=== PATIENT | female | born 1950 | race Caucasian/White ===

== ENCOUNTER 2017-07-18 14:47 | Emergency (ER) | payer MEDICARE, OTHER, SELFPAY ==
[2017-07-18 15:40] VITALS: BP 105/86; PULSE 85; RESP 20; TEMP 37.1; O2SAT 97; BMI 30.4
--- NOTE | 2017-07-18 15:56 | HMH.EDUTC ---
[facility] [place] Clinical Impression: Strep throat Disposition: Home, Self-Care Condition on Discharge: Good Instructions: Strep Throat, DI for Strep Throat Additional Instructions: * Monitor Temp. Tylenol and/or Ibuprofen as needed. ER if fever is no less than 101 despite alternating Tylenol and Ibuprofen * Encourage fluids, water, Gatorade, powerade, pedialyte if /toddler/or child * Warm salt water gargles for throat irritation *Warm fluids *Sore throat lozenges *Sleep elevated *humidifier or vaporizer Lots of rest Increase fluids, water, Gatorade, powerade Follow up IMMEDIATELY for new or worsening of symptoms OR no noticeable improvement over the next 48-72 hours. 911 immediately for any life threatening symptoms such as chest pain or difficulty breathing Referrals: Cheikh Yeboah MD [Primary Care Provider] - Time of Disposition: 16:18 Medical Decision Making - Medical Records Medical records reviewed: Yes: I reviewed the patient's medical records. Vital Signs: 07/18/17 15:40 Temperature 98.8 F Temperature Source Temporal Artery Scan Pulse Rate [Right] 85 Respiratory Rate 20 Blood Pressure [Right Arm] 105/86 Blood Pressure Mean [Right Arm] 92 Blood Pressure Source [Right Arm] Automatic Cuff Blood Pressure Position [Right Arm] Sitting 02 Sat by Pulse Oximetry 97 Oxygen Delivery Method Room Air - Lab Data Lab Results 07/18/17 15:40: Influenza Type A Ag Negative, Influenza Type B Ag Negative, Strep Scn Rapid Clinic Positive A Orders (Tests/Meds): ED MEDICATIONS Discontinued Medications Generic Name Dose Route Start Last Admin Trade Name Freq PRN Reason Stop Dose Admin Penicillin G Benzathine 1,200,000 unit 07/18/17 16:07 07/18/17 16:18 Bicillin La 1,200,000 Units/2ml Syringe IM 07/18/17 16:08 1,200,000 unit ONCE ONE Administration Protocol - Bon Inquiry Pt receiving controlled substance: No Bon was queried for this patient: No [facility] [place] - General Stated complaint: cough sore throat lft ear pain Mode of Arrival: Ambulatory Source of Information: Patient Limitations: No Limitations Description of Symptoms (Recalled from Triage Doc. by RN): COUGH, CONGESTION HEENT Symptoms (Recalled from RN notes): Yes Resp Symptoms (Recalled from RN notes): No Skin Symptoms (Recalled from RN notes): No MS Symptoms (Recalled from RN notes): No Functional Status (Recalled from RN notes): N - History of Present Illness Provider Complaint: Patient state that she has been taking care of her sick grandchildren States that one grandchild had the flu and one had strep throat States that she is sure she has one of them. States that she has had fever, body aches chills and sore throat State that it hurts to swallow and her throat raza - Related Data Allergies Allergy/AdvReac Type Severity Reaction Status Date / Time azithromycin Allergy Intermediate NA-NAUSEA/V Verified 07/18/17 15:44 OMITING latex Allergy Intermediate I-HIVES Verified 07/18/17 16:09 adhesive tape Allergy Unknown I-HIVES Verified 07/18/17 16:09 promethazine Allergy Unknown LEG PAIN Verified 07/18/17 15:44 - Worker's Comp Is this a Worker's Comp case?: No [facility] History I have reviewed the patient's past medical history: Yes - *Social History Alcohol Intake: never - Psychiatric History Expresses thoughts of harming self/others: None Suicide Plan Description: No Plan ROS Obtained: Yes All systems reviewed & no additional complaints Physical Exam - General General appearance: alert, in no apparent distress - Expanded ENT Exam Throat exam: Present: tonsillar erythema, tonsillar exudate - Respiratory Respiratory exam: Present: normal lung sounds bilaterally. Absent: respiratory distress - Cardiovascular Cardiovascular exam: Present: regular rate, normal rhythm. Absent: JVD - Neurological Exam Neurological exam: Present: alert, oriented X3
--- NOTE | 2017-07-18 16:06 | ED_ITS ---
[facility] [place] Disposition Clinical Impression: Strep throat Disposition: Home, Self-Care Condition on Discharge: Good Instructions: Strep Throat, DI for Strep Throat Additional Instructions: * Monitor Temp. Tylenol and/or Ibuprofen as needed. ER if fever is no less than 101 despite alternating Tylenol and Ibuprofen * Encourage fluids, water, Gatorade, powerade, pedialyte if /toddler/or child * Warm salt water gargles for throat irritation *Warm fluids *Sore throat lozenges *Sleep elevated *humidifier or vaporizer Lots of rest Increase fluids, water, Gatorade, powerade Follow up IMMEDIATELY for new or worsening of symptoms OR no noticeable improvement over the next 48-72 hours. 911 immediately for any life threatening symptoms such as chest pain or difficulty breathing Referrals: Cheikh Yeboah MD [Primary Care Provider] - Time of Disposition: 16:18 Medical Decision Making - Medical Records Medical records reviewed: Yes: I reviewed the patient's medical records. Vital Signs: 07/18/17 15:40 Temperature 98.8 F Temperature Source Temporal Artery Scan Pulse Rate [Right] 85 Respiratory Rate 20 Blood Pressure [Right Arm] 105/86 Blood Pressure Mean [Right Arm] 92 Blood Pressure Source [Right Arm] Automatic Cuff Blood Pressure Position [Right Arm] Sitting 02 Sat by Pulse Oximetry 97 Oxygen Delivery Method Room Air - Lab Data Lab Results 07/18/17 15:40: Influenza Type A Ag Negative, Influenza Type B Ag Negative, Strep Scn Rapid Clinic Positive A Orders (Tests/Meds): ED MEDICATIONS Discontinued Medications Generic Name Dose Route Start Last Admin Trade Name Freq PRN Reason Stop Dose Admin Penicillin G Benzathine 1,200,000 unit 07/18/17 16:07 07/18/17 16:18 Bicillin La 1,200,000 Units/2ml Syringe IM 07/18/17 16:08 1,200,000 unit ONCE ONE Administration Protocol - Bon Inquiry Pt receiving controlled substance: No Bon was queried for this patient: No [facility] [place] HPI - General Stated complaint: cough sore throat lft ear pain Mode of Arrival: Ambulatory Source of Information: Patient Limitations: No Limitations Description of Symptoms (Recalled from Triage Doc. by RN): COUGH, CONGESTION HEENT Symptoms (Recalled from RN notes): Yes Resp Symptoms (Recalled from RN notes): No Skin Symptoms (Recalled from RN notes): No MS Symptoms (Recalled from RN notes): No Functional Status (Recalled from RN notes): N - History of Present Illness Provider Complaint: Patient state that she has been taking care of her sick grandchildren States that one grandchild had the flu and one had strep throat States that she is sure she has one of them. States that she has had fever, body aches chills and sore throat State that it hurts to swallow and her throat raza - Related Data Allergies Allergy/AdvReac Type Severity Reaction Status Date / Time azithromycin Allergy Intermediate NA-NAUSEA/V Verified 07/18/17 15:44 OMITING latex Allergy Intermediate I-HIVES Verified 07/18/17 16:09 adhesive tape Allergy Unknown I-HIVES Verified 07/18/17 16:09 promethazine Allergy Unknown LEG PAIN Verified 07/18/17 15:44 - Worker's Comp Is this a Worker's Comp case?: No [facility] History I have reviewed the patient's past medical history: Yes - *So
[2017-07-18 16:17] LABS: UTC Influenza A Antigen Negative (Negative); UTC Influenza B Antigen Negative (Negative); UTC Strep Screen (Rapid) Positive (Negative)
[2017-07-18 16:21] VITALS: BP 108/82; PULSE 85; RESP 20; TEMP 36.9
== END 2017-07-18 16:34 | disposition home or self-care (01) ==
PROVIDERS: Emergency Provider Nurse Practitioner; Family Provider Internal Medicine Adolescent Medicine; PCP Internal Medicine Adolescent Medicine
DX: J02.0 Streptococcal pharyngitis (principal)
CPT/HCPCS: 87804; 87880; 96372; 99201; J0561

== ENCOUNTER → 2017-08-17 08:23 | Outpatient (CLI) | payer MEDICARE, OTHER, SELFPAY ==
[2017-08-17 09:00] LABS: Basophils % 0.4 % (0.1-2.0); Eosinophils # 0.2 K/mm3 (0.0-0.4); Eosinophils % 3.3 % (0.1-12.0); Hematocrit 38.3 % (37.0-47.0); Hemoglobin 12.8 g/dL (12.2-16.2); Lymphocytes % 20.9 K/mm3 (10-50); Mean Corpuscular HGB Conc 33.4 g/dL (31.8-35.4); Mean Corpuscular Hemoglobin 30.4 pg (27.0-31.2); Mean Corpuscular Volume 91.2 fl (81-99); Monocytes # 0.4 K/mm3 (0.1-1.0); Neutrophils % 67.4 % (37.0-80.0); Platelet Count 197 K/mm3 (142-424); Red Cell Distribution Width 14.4 % (11.5-17.5); White Blood Count 4.5 K/mm3 (4.8-10.8)
[2017-08-17 09:04] LABS: Alanine Aminotransferase 27 U/L (12-78); Albumin Level 3.6 gm/dL (3.4-5.0); Albumin/Globulin Ratio 1.1 (1.1-1.8); Alkaline Phosphatase 128 U/L (46-116); Anion Gap 12.2 mEq/L (5-15); Aspartate Amino Transferase 17 U/L (15-37); Bilirubin,Total 1.5 mg/dL (0.2-1.0); Blood Urea Nitrogen 11 mg/dL (7-18); Calcium 8.5 mg/dL (8.5-10.1); Carbon Dioxide 28 mmol/L (21.0-32.0); Chloride 105 mmol/L (98-107); Chol/HDL Ratio 3.8 (1-3.5); Cholesterol 132 mg/dL (140-200); Creatinine,Serum 0.84 mg/dL (0.55-1.02); Estimated Glomerular Filt Rate 68 ml/min (>60); GFR (African American) 82 ML/MIN (>60); Globulin 3.3 gm/dl (1.3-3.2); Glucose 163 mg/dL (74-106); HDL Cholesterol 35 mg/dL (29-89); LDL Cholesterol 64 mg/dL (0-130); Potassium 3.2 mmoL/L (3.5-5.1); Sodium 142 mmol/L (136-145); Total Protein,Serum 6.9 gm/dL (6.4-8.2); Triglycerides 165 mg/dL (30-200); VLDL Cholesterol 33 mg/dL (0-40)
[2017-08-17 09:42] LABS: Hemoglobin A1C 6.6 % (0.0-7.0)
== END ==
PROVIDERS: Visit Provider Internal Medicine Adolescent Medicine
DX: E78.5 Hyperlipidemia, unspecified (principal); E11.9 Type 2 diabetes mellitus without complications; I10 Essential (primary) hypertension; R53.83 Other fatigue; E03.9 Hypothyroidism, unspecified
CPT/HCPCS: 36415; 80053; 80061; 83036; 84443; 85025

== ENCOUNTER 2017-09-21 14:21 | Observation (INO) ==
[2017-09-21 14:43] LABS: Basophils % 0.3 % (0.1-2.0); Eosinophils # 0.1 K/mm3 (0.0-0.4); Hematocrit 43.5 % (37.0-47.0); Hemoglobin 14.4 g/dL (12.2-16.2); Lymphocytes # 1.6 K/mm3 (0.7-4.5); Lymphocytes % 24.3 K/mm3 (10-50); Mean Corpuscular HGB Conc 33.1 g/dL (31.8-35.4); Mean Corpuscular Volume 90.4 fl (81-99); Mean Platelet Volume 7.2 fl (7.4-10.4); Monocytes # 0.3 K/mm3 (0.1-1.0); Monocytes % 4.7 % (1.7-9.3); Neutrophils # 4.4 K/mm3 (1.8-7.8); Neutrophils % 68.7 % (37.0-80.0); Platelet Count 210 K/mm3 (142-424); Red Blood Count 4.81 M/mm3 (4.20-5.40); Red Cell Distribution Width 14.3 % (11.5-17.5); White Blood Count 6.4 K/mm3 (4.8-10.8)
--- NOTE | 2017-09-21 14:51 | Emergency Department Note ---
ED Disposition Clinical Impression: Hypotension, Hyperlipidemia, Hypothyroidism, Chest pain Disposition: Still a Patient Condition on Discharge: Fair Referrals: Cheikh Yeboah MD [Primary Care Provider] - - Critical Care Critical Care Time: No Attestation: On 09/21/17, the high probability of a clinically significant, sudden or life threatening deterioration of the following system(s) required my full and direct attention, intervention and personal management. The time I documented below is in addition to time spent performing reported procedures but includes the following listed in this critical care notation. Medical Decision Making - Medical Records Medical records reviewed: Yes: I reviewed the patient's medical records. - Bon Inquiry Pt receiving controlled substance: No Bon was queried for this patient: No Vital Signs: 09/21/17 14:22 Temperature 98.4 F Temperature Source Oral Pulse Rate [Left Radial] 93 H Respiratory Rate 20 Blood Pressure [Right Arm] 129/58 Blood Pressure Mean [Right Arm] 81 Blood Pressure Source [Right Arm] Automatic Cuff Blood Pressure Position [Right Arm] Sitting 02 Sat by Pulse Oximetry 95 Oxygen Delivery Method Room Air - Lab Data Lab Results 09/21/17 14:30: WBC 6.4, RBC 4.81, Hgb 14.4, Hct 43.5, MCV 90.4, MCH 30.0, MCHC 33.1, RDW 14.3, Plt Count 210, MPV 7.2 L, Neut % (Auto) 68.7, Lymph % (Auto) 24.3, [place] % (Auto) 4.7, Eos % (Auto) 2.0, Baso % (Auto) 0.3, Neut # (Auto) 4.4 , Lymph # (Auto) 1.6, [place] # (Auto) 0.3, Eos # (Auto) 0.1, Baso # (Auto) 0.0 09/21/17 14:30: Sodium 143, Potassium 3.3 L, Chloride 104, Carbon Dioxide 30, Anion Gap 12.3, BUN 14, Creatinine 0.90, Estimated Creat Clear 67, Estimated GFR 62, Est GFR ( Amer) 76, Glucose 113 H, Calcium 9.5, Total Bilirubin 2.3 H, AST 66 H, ALT 47, Alkaline Phosphatase 205 H, Total Creatine Kinase 83, CK-MB (CK-2) 0.7, CK-MB (CK-2) Rel Index 0.8, Troponin I < 0.02, Total Protein 7.8, Albumin 4.2, Globulin 3.6 H, Albumin/Globulin Ratio 1.2 09/21/17 14:30: D-Dimer < 100 09/21/17 14:30: B-Natriuretic Peptide 6 Result diagrams: 09/21/17 14:30 09/21/17 14:30 - ECG Data Tracing #1 Normal sinus rhythm 96/min ST segment depression 1 mm in the inferior leads, stable since January 2015 EKG ECG initial impression date: 09/21/17 ECG initial impression time: 14:52 Medical Decision Narrative: I discussed Ms. Cook's EKG lab findings and clinical presentation with Jinny Yeboah's nurse practitioner. Will admit rule out NM protocol and obtain echocardiogram. Chest Pain HPI - General Chief Complaint: Chest Pain Stated Complaint: chest pain Time Seen by Provider: 09/21/17 14:25 Mode of Arrival: Family Vehicle Limitations: No Limitations Description of Symptoms (Recalled from ER Triage Doc. by RN): PT C/O MIDSTERNAL CHEST PAIN THAT IS RADIATING TO HER RIGHT CHEST AND TO HER BACK. PT STATES THE PAIN STARTED 1300. - History of Present Illness HPI narrative: 67 years old white female hypertension hyperlipidemia and hypothyroidism. one hour ago, she was at home when she experiences sharp retrosternal chest pain rated 10/10 she had a shortness of breath no palpitations. She decided to come to the ED and it was worse with throat bumps. MD complaint: chest pain Onset (ago): hour(s) (1 hour.) Duration: constant Activity at onset: during rest Pain location: substernal Severity: severe Severity scale (1-10): 10 Quality: sharp Pain radiation: none Relieving factors: nothing Exacerbating factors: movement, other (Road bumps.) Treatments prior to or on arrival for Cardiac Chest Pain: none - Related Data Home Medications Medication Instructions Recorded Confirmed Atorvastatin Calcium [Atorvastatin 40 mg PO HS 09/21/17 09/21/17 40mg Tab] Cetirizine HCl [Cetirizine HCl] 10 mg PO DAILY 09/21/17 09/21/17 Duloxetine HCl [Duloxetine HCl] 60 mg PO DAILY 09/21/17 09/21/17 Furosemide [Furosemide 20mg Tab] 20 mg PO BID 09/21/17 09/21/17 Levothyroxine Sodium 125 mcg PO DAILY 09/21/17 09/21/17 [Levothyroxine 125mcg (0.125mg) Tab] Lisinopril [Lisinopril 5mg Tablet] 5 mg PO DAILY 09/21/17 09/21/17 Pantoprazole Sodium [Protonix 40mg 40 mg PO BID 09/21/17 09/21/17 tablet] Potassium Chloride [K-Tab ER 10 10 meq PO BID 09/21/17 09/21/17 mEq] buPROPion HCl [Bupropion Xl] 150 mg PO DAILY 09/21/17 09/21/17 Allergies Allergy/AdvReac Type Severity Reaction Status Date / Time azithromycin Allergy Intermediate NA-NAUSEA/V Verified 09/21/17 14:30 OMITING latex Allergy Intermediate I-HIVES Verified 09/21/17 14:30 adhesive tape Allergy Unknown I-HIVES Verified 09/21/17 14:30 promethazine Allergy Unknown LEG PAIN Verified 09/21/17 14:30 [facility] History I have reviewed the patient's past medical history: Yes Medical History: Reports:: Cancer (BRAIN) Denies:: Diabetes Mellitus Type 1, Diabetes Mellitus Type 2, MRSA Amputation: No Fractures: No - Social History Smoking Status: Never smoker Alcohol Intake: never - Psychiatric History Expresses thoughts of harming self/others: None Suicide Plan Description: No Plan ROS Obtained: Yes All systems reviewed & no additional complaints Physical Exam - General General appearance: alert, in no apparent distress - Head Head exam: atraumatic, normocephalic, normal inspection - Eye Eye exam: Present: normal appearance, PERRL, EOMI - ENT ENT exam: Present: normal exam, normal oropharynx, mucous membranes moist, TM's normal bilaterally, normal external ear exam - Neck Neck exam: Present: normal inspection, full ROM, trachea midline. Absent: meningismus, lymphadenopathy - Chest Chest inspection: Present: normal inspection, symmetric chest wall rise, tenderness, other (Reproducible left parasternal tenderness. ) - Respiratory Respiratory exam: Present: normal lung sounds bilaterally. Absent: respiratory distress - Cardiovascular Cardiovascular exam: Present: regular rate, normal rhythm. Absent: JVD - Abdominal Exam Abdominal exam: Present: soft, normal bowel sounds. Absent: distention, tenderness, guarding, rebound, rigidity, mass - Back Exam Back exam: Present: normal inspection. Absent: tenderness - Neurological Exam Neurological exam: Present: alert, oriented X3, CN II-XII intact, normal gait, motor sensory deficit, reflexes normal - Psychiatric Psychiatric exam: Present: normal affect, normal mood - Skin Skin exam: Present: warm, dry, intact, normal color - Lymphatic Lymphatic Findings: no adenopathy
[2017-09-21 15:06] LABS: Alanine Aminotransferase 47 U/L (12-78); Albumin Level 4.2 gm/dL (3.4-5.0); Albumin/Globulin Ratio 1.2 (1.1-1.8); Alkaline Phosphatase 205 U/L (46-116); Anion Gap 12.3 mEq/L (5-15); Aspartate Amino Transferase 66 U/L (15-37); Bilirubin,Total 2.3 mg/dL (0.2-1.0); Blood Urea Nitrogen 14 mg/dL (7-18); Calcium 9.5 mg/dL (8.5-10.1); Carbon Dioxide 30 mmol/L (21.0-32.0); Chloride 104 mmol/L (98-107); Creatine Kinase 83 U/L (26-192); Globulin 3.6 gm/dl (1.3-3.2); Glucose 113 mg/dL (74-106); Potassium 3.3 mmoL/L (3.5-5.1); Sodium 143 mmol/L (136-145); Total Protein,Serum 7.8 gm/dL (6.4-8.2)
--- NOTE | 2017-09-21 16:53 | History & Physical Report ---
*Admission Date: 09/21/17 *Chief complaint: chest pain *History of present illness: 67 year old female presented to the ED with acute onset of chest pain that began while she was at a earlier today. Patient reports pain was midsternal and radiated around the right side of her chest. She had some associated shortness of breath and felt a little nauseated. She denies any exertional correlation. She reports other similar episodes, none of which occurred with exertion. In the ED, EKG showed T wave inversion and nonspecific ST changes, neither of which are new. Cardiac enzymes and D Dimer were normal. Patient had a cardiolite GXT and Echo in 2011 that were normal, no additional cardiac testing since that time. CMP showed her total bili at 2.3, which is up from her baseline of 1.5. AST 66. She was admitted for serial enzymes and further evaluation. [facility] History I have reviewed the patient's past medical history: Yes Medical History: Reports:: Cancer (BRAIN) Denies:: Diabetes Mellitus Type 1, Diabetes Mellitus Type 2, MRSA Amputation: No Fractures: No - *Social History Smoking Status: Never smoker Alcohol Intake: never - Psychiatric History Expresses thoughts of harming self/others: None Suicide Plan Description: No Plan Review of Systems - Review of Systems Review of systems:: pertinent systems reviewed and negative unless documented below - *Cardiovascular Reports chest pain, Reports shortness of breath - *Gastrointestinal Reports nausea Meds Home Medications Medication Instructions Recorded Confirmed Type Atorvastatin Calcium [Atorvastatin 40 mg PO HS 09/21/17 09/21/17 History 40mg Tab] Cetirizine HCl [Cetirizine HCl] 10 mg PO DAILY 09/21/17 09/21/17 History Duloxetine HCl [Duloxetine HCl] 60 mg PO DAILY 09/21/17 09/21/17 History Furosemide [Furosemide 20mg Tab] 20 mg PO BID 09/21/17 09/21/17 History Levothyroxine Sodium 125 mcg PO DAILY 09/21/17 09/21/17 History [Levothyroxine 125mcg (0.125mg) Tab] Lisinopril [Lisinopril 5mg Tablet] 5 mg PO DAILY 09/21/17 09/21/17 History Pantoprazole Sodium [Protonix 40mg 40 mg PO BID 09/21/17 09/21/17 History tablet] Potassium Chloride [K-Tab ER 10 10 meq PO BID 09/21/17 09/21/17 History mEq] buPROPion HCl [Bupropion Xl] 150 mg PO DAILY 09/21/17 09/21/17 History Allergies Allergy/AdvReac Type Severity Reaction Status Date / Time azithromycin Allergy Intermediate NA-NAUSEA/V Verified 09/21/17 14:30 OMITING latex Allergy Intermediate I-HIVES Verified 09/21/17 14:30 adhesive tape Allergy Unknown I-HIVES Verified 09/21/17 14:30 promethazine Allergy Unknown LEG PAIN Verified 09/21/17 14:30 Exam Vital signs and Labs for Last 24 Hours: Temp Pulse Resp BP Pulse Ox 98.4 F 93 H 20 129/58 95 09/21/17 14:22 09/21/17 14:22 09/21/17 14:22 09/21/17 14:22 09/21/17 14:22 Narrative: Alert and oriented x3. Rate and rhythm regular, no murmur. No carotid bruit. No JVD. No LE edema. Lung sounds clear and equal throughout. Abdomen soft and nontender. Skin pink, warm and dry. No neuro deficits Assessment and Plan (1) Chest pain Current visit: Yes Status: Acute Category: Medical Code(s): R07.9 - Chest pain, unspecified - Assessment and plan all Dx Assessment and Plan for all problems:: Serial enzymes. Will monitor telemetry and obtain Echo.
[2017-09-22 05:02] LABS: Anion Gap 9.4 mEq/L (5-15); Chol/HDL Ratio 2.6 (1-3.5); Potassium 3.4 mmoL/L (3.5-5.1)
[2017-09-22 05:11] LABS: Basophils % 0.3 % (0.1-2.0); Eosinophils # 0.1 K/mm3 (0.0-0.4); Eosinophils % 3.7 % (0.1-12.0); Hematocrit 38.9 % (37.0-47.0); Lymphocytes # 0.8 K/mm3 (0.7-4.5); Lymphocytes % 21.9 K/mm3 (10-50); Mean Corpuscular HGB Conc 32.6 g/dL (31.8-35.4); Mean Corpuscular Hemoglobin 29.7 pg (27.0-31.2); Mean Platelet Volume 7.2 fl (7.4-10.4); Monocytes # 0.3 K/mm3 (0.1-1.0); Monocytes % 7.4 % (1.7-9.3); Neutrophils # 2.5 K/mm3 (1.8-7.8); Neutrophils % 66.7 % (37.0-80.0); Platelet Count 177 K/mm3 (142-424); Red Blood Count 4.28 M/mm3 (4.20-5.40); Red Cell Distribution Width 14.2 % (11.5-17.5); White Blood Count 3.7 K/mm3 (4.8-10.8)
[2017-09-22 05:18] LABS: Hemoglobin 12.8 g/dL (12.2-16.2)
--- NOTE | 2017-09-22 07:34 | Pharmacy Consult Notes ---
[facility] Pharmacy VTE Monitoring - Patient Demographics Admission date: 09/21/17 Report Date: 09/22/17 Time: 07:34 Allergies/Adverse Reactions: Patient Allergies azithromycin Allergy (Intermediate, Verified 09/21/17 14:30) NA-NAUSEA/VOMITING latex Allergy (Intermediate, Verified 09/21/17 14:30) I-HIVES adhesive tape Allergy (Unknown, Verified 09/21/17 14:30) I-HIVES promethazine Allergy (Unknown, Verified 09/21/17 14:30) LEG PAIN Height: 1.57 m Weight: 78.018 kg Patient Problems: Current Active Problems Hypotension (Acute) Hyperlipidemia (Acute) Hypothyroidism (Acute) Chest pain (Acute) - VTE Risk Labs: VTE Related Lab Results Hgb 12.8 g/dL (12.2-16.2) D 09/22/17 04:15 Hct 38.9 % (37.0-47.0) 09/22/17 04:15 Plt Count 177 K/mm3 (142-424) 09/22/17 04:15 BUN 12 mg/dL (7-18) 09/22/17 04:15 Creatinine 0.81 mg/dL (0.55-1.02) 09/22/17 04:15 Estimated Creat Clear 67 mL/min (0-300) 09/22/17 04:15 Was VTE Risk Assessment Performed: Yes VTE Score: 5 VTE Risk Level: Low Risk Clinical Trial Participant: No - Prophylaxis VTE Prophylaxis Ordered?: Yes Types of VTE Prophylaxis: TEDS Knee High
--- NOTE | 2017-09-22 07:54 | Discharge Summary ---
General - General Admission date: 09/21/17 Discharge date: 09/22/17 HPI HPI: 67 year old female presented to the ED with acute onset of chest pain that began while she was at a earlier today. Patient reports pain was midsternal and radiated around the right side of her chest. She had some associated shortness of breath and felt a little nauseated. She denies any exertional correlation. She reports other similar episodes, none of which occurred with exertion. In the ED, EKG showed T wave inversion and nonspecific ST changes, neither of which are new. Cardiac enzymes and D Dimer were normal. Patient had a cardiolite GXT and Echo in 2011 that were normal, no additional cardiac testing since that time. CMP showed her total bili at 2.3, which is up from her baseline of 1.5. AST 66. She was admitted for serial enzymes and further evaluation. Hospital Course Hospital Course: Patient was admitted, ruled out for myocardial infarction, had one episode of sharp chest pain while she was lying flat in bed. Otherwise feels good this morning. Exam was normal. Enzymes were normal. Plan will be to discharge home today. Stress testing as an outpatient, nitroglycerin aspirin are prescribed, she was instructed clearly on nitro use and need to come back to the hospital if she had no response to nitro pill with pain. She will follow-up with me after the stress test. Objective Vital signs: Temp Pulse Resp BP Pulse Ox 98.0 F 78 16 137/77 94 L 09/22/17 07:46 09/22/17 07:46 09/22/17 07:46 09/22/17 07:46 09/22/17 07:46 Narrative: Patient is pleasant, talkative, alert, oriented 3. Heart rate regular, no murmurs, lungs clear, no edema, abdomen soft, no JVD. Results Labs on day of discharge: Labs from last 24 hours 09/22/17 09/22/17 09/22/17 04:15 04:15 04:15 WBC 3.7 L D RBC 4.28 Hgb 12.8 D Hct 38.9 MCV 91.0 MCH 29.7 MCHC 32.6 RDW 14.2 Plt Count 177 MPV 7.2 L Neut % (Auto) 66.7 Lymph % (Auto) 21.9 [place] % (Auto) 7.4 Eos % (Auto) 3.7 Baso % (Auto) 0.3 Neut # (Auto) 2.5 Lymph # (Auto) 0.8 [place] # (Auto) 0.3 Eos # (Auto) 0.1 Baso # (Auto) 0.0 Sodium 143 Potassium 3.4 L Chloride 108 H Carbon Dioxide 29 Anion Gap 9.4 BUN 12 Creatinine 0.81 Estimated Creat Clear 67 Estimated GFR 71 Est GFR ( Amer) 85 Glucose 130 H Troponin I < 0.02 Triglycerides 160 Cholesterol 92 L LDL Cholesterol 24 VLDL Cholesterol 32 HDL Cholesterol 36 Cholesterol/HDL Ratio 2.6 09/21/17 22:05 WBC RBC Hgb Hct MCV MCH MCHC RDW Plt Count MPV Neut % (Auto) Lymph % (Auto) [place] % (Auto) Eos % (Auto) Baso % (Auto) Neut # (Auto) Lymph # (Auto) [place] # (Auto) Eos # (Auto) Baso # (Auto) Sodium Potassium Chloride Carbon Dioxide Anion Gap BUN Creatinine Estimated Creat Clear Estimated GFR Est GFR ( Amer) Glucose Troponin I < 0.02 Triglycerides Cholesterol LDL Cholesterol VLDL Cholesterol HDL Cholesterol Cholesterol/HDL Ratio DS: Diagnosis - Discharge Diagnosis (1) Chest pain Status: Acute Discharge Plan - Patient Discharge Instructions ACTIVITY: Continue current activity DIET: continue same diet - Follow up Plan Follow up with: Cheikh Yeboah MD [Primary Care Provider] - 1 week Disposition: Home, Self-Fci Medications: Home Medications Medication Instructions Recorded Confirmed Type Atorvastatin Calcium [Atorvastatin 40 mg PO HS 09/21/17 09/21/17 History 40mg Tab] Cetirizine HCl [Cetirizine HCl] 10 mg PO DAILY 09/21/17 09/21/17 History Duloxetine HCl [Duloxetine HCl] 60 mg PO DAILY 09/21/17 09/21/17 History Furosemide [Furosemide 20mg Tab] 20 mg PO BID 09/21/17 09/21/17 History Levothyroxine Sodium 125 mcg PO DAILY 09/21/17 09/21/17 History [Levothyroxine 125mcg (0.125mg) Tab] Lisinopril [Lisinopril 5mg Tablet] 5 mg PO DAILY 09/21/17 09/21/17 History Pantoprazole Sodium [Protonix 40mg 40 mg PO BID 09/21/17 09/21/17 History tablet] Potassium Chloride [K-Tab ER 10 10 meq PO BID 09/21/17 09/21/17 History mEq] buPROPion HCl [Bupropion Xl] 150 mg PO DAILY 09/21/17 09/21/17 History Prescriptions/Medication Reconciliation: New Aspirin [Aspirin 81mg EC Tab] 81 mg PO DAILY #30 tablet. Nitroglycerin 0.4 mg SL Q5MINP PRN #25 tab.subl PRN Reason: chest pain Continue Pantoprazole Sodium [Protonix 40mg tablet] 40 mg PO BID Levothyroxine Sodium [Levothyroxine 125mcg (0.125mg) Tab] 125 mcg PO DAILY Lisinopril [Lisinopril 5mg Tablet] 5 mg PO DAILY Furosemide [Furosemide 20mg Tab] 20 mg PO BID Duloxetine HCl [Duloxetine HCl] 60 mg PO DAILY buPROPion HCl [Bupropion Xl] 150 mg PO DAILY Atorvastatin Calcium [Atorvastatin 40mg Tab] 40 mg PO HS Potassium Chloride [K-Tab ER 10 mEq] 10 meq PO BID Cetirizine HCl [Cetirizine HCl] 10 mg PO DAILY
--- NOTE | 2017-09-22 12:58 | Cardiology Report ---
PROCEDURE: 2-D M-mode and color Doppler study INDICATIONS FOR THE TEST: Chest pain X COPD Heart Murmur Tobacco Smoking Palpitations Fatigue Syncope Edema Hypertension Diabetes Mellitus Rheumatic Fever SOBXDOE ObesityXHyperlipidemia Family History HD Additional History PATIENT INFORMATION HEIGHT: 62 WEIGHT:172 GENDER: Female B/P:110/70 2-D/M-MODE INTERPRETATION: 2-D MEASUREMENTS OBSERVED VALUES IN CMS Right Ventricular Dimension (RVDd) 2.1 Interventricular Septum (Thickness)(IVsd) 1.1 Left Ventricular Internal Dimensions(LVIDd) 4.1 Left Ventricular Posterior Wall (Thickness)(LVPWd) 1.3 Aortic Root 2.5 Aortic Cusp Separation 1.6 Left Atrial Dimensions (LAD) 2.7 2D 1. Left atrium is normal size, left ventricle is normal size, mild concentric left ventricular hypertrophy, visually estimated ejection fraction 55% with no obvious regional wall motion abnormality. 2. The right atrium and right ventricle are normal size and contractility. 3. The aortic valve, mitral and tricuspid valvular grossly normal. 4. The pulmonic valve is poorly visualized. 5. No significant pericardial effusion noted. DOPPLER INTERROGATION: Doppler interrogation of the aortic, mitral and tricuspid valvular presence of mild mitral and tricuspid regurgitation, calculated right ventricular systolic pressure is 36 mmHg, grade 1 diastolic dysfunction seen without tissue Doppler evidence of raised left atrial pressure. CONCLUSION: 1. Normal left ventricular size, mild concentric left ventricular hypertrophy, visually estimated ejection fraction 55% with no obvious regional wall motion abnormality. Grade 1 diastolic dysfunction seen without tissue Doppler evidence of raised left atrial pressure. 2. Mild mitral and tricuspid regurgitation, calculated right ventricular systolic pressure study 6 mmHg. 3. No significant pericardial effusion noted.
== END 2017-09-22 09:50 | disposition home or self-care (01) ==
LOC: ICU 14:21 → ER 14:21 → ICU 16:50 → 2ND 18:19
PROVIDERS: ADMIT Internal Medicine Adolescent Medicine; ATTEND Internal Medicine Adolescent Medicine

== ENCOUNTER → 2017-09-25 07:07 | Outpatient (CLI) | payer MEDICARE, OTHER, SELFPAY ==
--- NOTE | 2017-09-25 07:14 | NM_ITS ---
CARDIOLITE SPECT MYOCARDIAL PERFUSION SCAN, REST AND STRESS: EXERCISE STRESS [facility] REVIEW QGS EF AND WALL MOTION EVALUATION: QPS - PERFUSION EVALUATION HISTORY: Chest pain, SOB, HTN DOSE: 10.94 mCi technetium 99m mibi intravenously at rest followed by 30.5 mCi technetium 99m mibi following the intravenous ministration of 0.4 mg of Lexiscan. Resting blood pressure is 144/84. Stress blood pressure 134/71. FINDINGS: Ejection fraction is calculated to be 72%. Stress images reveal decreased activity in the anterior wall with slight improvement with rest images. Gated images calculated ejection fraction of 72% with normal wall motion IMPRESSION: Clinical correlation is advised. It is possible this defect represents breast attenuation however this could also represent previous nontransmural myocardial infarction involving the anterior wall with reversible ischemia. Hyperdynamic ejection fraction wall motion
--- NOTE | 2017-09-25 07:38 | HMH.ITSHM ---
LEVOTHYROXINE NITRO BUPROPION ASA FUROSEMIDE POTASSIUM CETIRIZINE PANTOPRAZOLE ATORVASTATIN LISINOPRIL DULOXETINE
== END ==
PROVIDERS: Family Provider Internal Medicine Adolescent Medicine; PCP Internal Medicine Adolescent Medicine; Visit Provider Internal Medicine Adolescent Medicine
DX: R07.9 Chest pain, unspecified (principal)
CPT/HCPCS: 78452; 93017; A9502; J2785

== ENCOUNTER → 2017-12-07 08:29 | Outpatient (CLI) | payer MEDICARE, OTHER, SELFPAY ==
--- NOTE | 2017-12-07 08:32 | MM_ITS ---
MM Dig screening mamm BI w/CAD CAD Screening COMPARISON: Digital mammograms with CAD 08/07/2015 and 10/06/2011 INDICATION: There is no personal or family history of breast cancer. TECHNIQUE: Standard CC and MLO images were obtained. R2 CAD reviewed. FINDINGS: The breasts are composed entirely of fat with minimal scattered fibroglandular densities. There are few benign-appearing calcifications in each breast. There is no suspicious lesion and there are no suspicious microcalcifications. IMPRESSION: Fatty type breast parenchyma with no suspicious lesion seen BI-RADS Category: 2 Benign Finding(s) RECOMMENDED FOLLOW-UP: 1YR - 1 YEAR FOLLOW-UP (A letter has been sent to the patient regarding results of the study.)
== END ==
PROVIDERS: Family Provider Internal Medicine Adolescent Medicine; PCP Internal Medicine Adolescent Medicine; Visit Provider Internal Medicine Adolescent Medicine
DX: Z12.31 Encounter for screening mammogram for malignant neoplasm of breast (principal)
CPT/HCPCS: 77067

== ENCOUNTER → 2017-12-26 10:09 | Outpatient (CLI) | payer MEDICARE, OTHER, SELFPAY ==
[2017-12-26 11:06] LABS: Hemoglobin A1C 7.4 % (0.0-7.0)
[2017-12-26 11:25] LABS: Alanine Aminotransferase 31 U/L (12-78); Albumin Level 3.8 gm/dL (3.4-5.0); Albumin/Globulin Ratio 1.1 (1.1-1.8); Alkaline Phosphatase 137 U/L (46-116); Anion Gap 13.6 mEq/L (5-15); Aspartate Amino Transferase 19 U/L (15-37); Bilirubin,Total 1.6 mg/dL (0.2-1.0); Blood Urea Nitrogen 10 mg/dL (7-18); Carbon Dioxide 27 mmol/L (21.0-32.0); Chloride 103 mmol/L (98-107); Chol/HDL Ratio 3.3 (1-3.5); Cholesterol 128 mg/dL (140-200); Creatinine,Serum 0.89 mg/dL (0.55-1.02); Estimated Glomerular Filt Rate 63 ml/min (>60); GFR (African American) 77 ML/MIN (>60); Globulin 3.6 gm/dl (1.3-3.2); Glucose 182 mg/dL (74-106); HDL Cholesterol 39 mg/dL (29-89); LDL Cholesterol 56 mg/dL (0-130); Potassium 3.6 mmoL/L (3.5-5.1); Sodium 140 mmol/L (136-145); Thyroid Stimulating Hormone 4.76 uIU/ml (0.358-3.740); Total Protein,Serum 7.4 gm/dL (6.4-8.2); Triglycerides 167 mg/dL (30-200); VLDL Cholesterol 33 mg/dL (0-40)
== END ==
PROVIDERS: Visit Provider Internal Medicine Adolescent Medicine
DX: E11.9 Type 2 diabetes mellitus without complications (principal); E78.5 Hyperlipidemia, unspecified; E03.9 Hypothyroidism, unspecified; I10 Essential (primary) hypertension
CPT/HCPCS: 36415; 80053; 80061; 83036; 84443

== ENCOUNTER → 2018-04-06 12:46 | Outpatient (CLI) | payer MEDICARE, OTHER, SELFPAY ==
[2018-04-08 09:28] LABS: Thyroid Peroxidase Antibodies 7 IU/mL (0-34)
[2018-04-15 06:52] LABS: Thyroglobulin RIA CHARGE YES
[2018-04-16 04:55] LABS: Thyroglobulin Level 1.3 IU/mL (0.0-0.9); Thyroglobulin by RIA <2.0 ng/mL (.)
== END ==
PROVIDERS: PCP Internal Medicine Adolescent Medicine; Visit Provider Internal Medicine Adolescent Medicine
DX: E05.90 Thyrotoxicosis, unspecified without thyrotoxic crisis or storm (principal)
CPT/HCPCS: 36415; 84443; 86376; 86800

== ENCOUNTER → 2018-05-09 12:41 | Outpatient (CLI) | payer MEDICARE, OTHER, SELFPAY ==
--- NOTE | 2018-05-09 13:05 | XR_ITS ---
EXAM: XR lumbar spine min 4V HISTORY: ITS.REASON: LOW BACK PAIN ORDERING PHYSICIAN: Cheikh Yeboah MD PATIENT AGE: 67 years COMPARISON: None FINDINGS: Degenerative disc disease is present at L2-L3 and L3-L4 with 4 mm anterolisthesis of L3. No fracture or dislocation. No lytic or blastic change. Facet arthritic changes are present also at L3-L4 and L5. There are mild osteoarthritic changes of the SI joints. No fracture or dislocation. No lytic or blastic change. IMPRESSION: Lumbar spondylosis with degenerative disc disease and facet arthritic change
== END ==
PROVIDERS: PCP Internal Medicine Adolescent Medicine; Visit Provider Internal Medicine Adolescent Medicine
DX: M54.5 Low back pain (principal)
CPT/HCPCS: 72110

== ENCOUNTER → 2018-08-10 14:36 | Outpatient (CLI) | payer MEDICARE, OTHER, SELFPAY ==
[2018-08-10 16:11] LABS: Blood Urea Nitrogen 11 mg/dL (7-18); Creatinine,Serum 0.89 mg/dL (0.55-1.02); Estimated Glomerular Filt Rate 63 ml/min (>60); GFR (African American) 76 ML/MIN (>60)
== END ==
PROVIDERS: Visit Provider Internal Medicine Hematology & Oncology
DX: C71.9 Malignant neoplasm of brain, unspecified (principal)
CPT/HCPCS: 36415; 82565; 84520

== ENCOUNTER → 2018-08-13 09:40 | Outpatient (CLI) | payer MEDICARE, OTHER, SELFPAY ==
--- NOTE | 2018-08-13 09:43 | MR_ITS ---
MR head/brain wo/w con HISTORY: ITS.REASON: GRADE 2 GLIOMA ORDERING PHYSICIAN: Faustino Plascencia PATIENT AGE: 68 years Comparison: 07/07/2014 TECHNIQUE: Standard multiplanar multiecho sequences are performed without and following the intravenous administration of 17 mL's of ProHance. FINDINGS: There are no recent exams available for comparison. The most recent study at this institution was obtained on 07/07/2014. No midline shift, mass effect, intracranial hemorrhage, or hydrocephalus is evident. There is a cystic area of encephalomalacia in the right parieto-occipital junction. Its measures 16 mm transverse and 13 mm AP at its widest margin. Centrally this shows CSF signal intensity with some increase in T2 and FLAIR signal peripherally. No enhancement is evident in this region. This corresponds to the previously noted area of decreased attenuation on the CT scan of 12/08/2014. There is an area of altered signal intensity in the right parietal bone at this same level consistent with a craniotomy defect. There are mild periventricular ischemic gliotic changes. No restricted diffusion. No evidence of acute infarction. No enhancing lesions are evident. Previous MRI demonstrated increased FLAIR signal along the posterior aspect of the splenium of the corpus callosum eccentric toward the right with a focus of increase FLAIR signal in the right parieto-occipital junction. This area is no longer apparent and presumed to have been removed surgically. No evidence of tumor recurrence in this region. The cerebellopontine angle, cerebellum, brainstem, pituitary, and craniocervical junction have an unremarkable appearance. There is some increased T2 signal along the anterior margin of the splenium of the corpus callosum is nonspecific. The previously noted increased FLAIR and T2 signal along the posterior aspect of the splenium of the corpus callosum is less apparent. No mastoid effusion or sinus air-fluid level. IMPRESSION: Status post right parietal craniotomy with cystic encephalomalacic changes in the right parieto-occipital junction medially. The lobular area of increased FLAIR and T2 signal in the right parietal occipital junction along the posterior aspect of the splenium of the corpus callosum is no longer apparent. No abnormal enhancement. No evidence of recurrence.
== END ==
PROVIDERS: PCP Internal Medicine Adolescent Medicine; Visit Provider Internal Medicine Hematology & Oncology
DX: C71.9 Malignant neoplasm of brain, unspecified (principal)
CPT/HCPCS: 70553; A9576

== ENCOUNTER 2018-10-05 11:20 | Observation (INO) ==
[2018-10-05 11:41] LABS: Basophils % 0.3 % (0.1-2.0); Eosinophils # 0.1 K/mm3 (0.0-0.4); Eosinophils % 0.7 % (0.1-12.0); Hematocrit 41.5 % (37.0-47.0); Hemoglobin 14.5 g/dL (12.2-16.2); Lymphocytes # 1.8 K/mm3 (0.7-4.5); Lymphocytes % 21.6 % (10-50); Mean Corpuscular HGB Conc 34.8 g/dL (31.8-35.4); Mean Corpuscular Hemoglobin 30.8 pg (27.0-31.2); Mean Corpuscular Volume 88.6 fl (81-99); Mean Platelet Volume 6.9 fl (7.4-10.4); Monocytes # 0.5 K/mm3 (0.1-1.0); Neutrophils # 5.8 K/mm3 (1.8-7.8); Neutrophils % 71.3 % (37.0-80.0); Platelet Count 246 K/mm3 (142-424); Red Blood Count 4.69 M/mm3 (4.20-5.40); White Blood Count 8.1 K/mm3 (4.8-10.8)
--- NOTE | 2018-10-05 11:43 | Emergency Department Note ---
ED Disposition Clinical Impression: Chest pain Qualifiers: Chest pain type: precordial pain Qualified Code(s): R07.2 - Precordial pain Disposition: Admitted as Observation Condition on Discharge: Good Referrals: Cheikh Yeboah MD [Primary Care Provider] - - Critical Care Critical Care Time: No Attestation: On 10/05/18, the high probability of a clinically significant, sudden or life threatening deterioration of the following system(s) required my full and direct attention, intervention and personal management. The time I documented below is in addition to time spent performing reported procedures but includes the following listed in this critical care notation. Medical Decision Making - Medical Records Medical records reviewed: Yes: I reviewed the patient's medical records. - Bon Inquiry Pt receiving controlled substance: No Vital Signs: 10/05/18 11:21 10/05/18 11:44 10/05/18 12:10 Temperature 98.4 F Temperature Source Oral Pulse Rate [Right Radial] 62 57 L 56 L Respiratory Rate 16 18 18 Blood Pressure [Right Arm] 156/109 H 140/88 148/93 H Blood Pressure Mean [Right Arm] 124 105 111 Blood Pressure Source [Right Arm] Automatic Cuff Automatic Cuff Automatic Cuff Blood Pressure Position [Right Arm] Sitting Supine Sitting 02 Sat by Pulse Oximetry 97 95 95 Oxygen Delivery Method Room Air Room Air Room Air 10/05/18 12:23 10/05/18 12:30 Temperature Temperature Source Pulse Rate [Right Radial] 55 L 54 L Respiratory Rate 16 Blood Pressure [Right Arm] 167/83 H 167/83 H Blood Pressure Mean [Right Arm] 111 111 Blood Pressure Source [Right Arm] Automatic Cuff Automatic Cuff Blood Pressure Position [Right Arm] Sitting Supine 02 Sat by Pulse Oximetry 97 98 Oxygen Delivery Method Room Air - Lab Data Lab results reviewed: Yes: I reviewed the patient's lab results. Lab Results 10/05/18 11:30: WBC 8.1, RBC 4.69, Hgb 14.5, Hct 41.5, MCV 88.6, MCH 30.8, MCHC 34.8, RDW 15.0, Plt Count 246, MPV 6.9 L, Neut % (Auto) 71.3, Lymph % (Auto) 21.6, Ponce % (Auto) 6.0, Eos % (Auto) 0.7, Baso % (Auto) 0.3, Neut # (Auto) 5.8, Lymph # (Auto) 1.8, Ponce # (Auto) 0.5, Eos # (Auto) 0.1, Baso # (Auto) 0.0 10/05/18 11:30: Sodium 139, Potassium 3.8, Chloride 103, Carbon Dioxide 24, Anion Gap 15.8 H, BUN 14, Creatinine 1.04 H, Estimated Creat Clear 59, Estimated GFR 53 L, Est GFR ( Amer) 64, Glucose 173 H, Calcium 8.8, Troponin I < 0.02 Result diagrams: 10/05/18 11:30 10/05/18 11:30 Orders (Tests/Meds): ED MEDICATIONS Generic Name Dose Route Start Last Admin Trade Name Freq PRN Reason Stop Dose Admin Fentanyl Citrate 25 mcg 10/05/18 12:23 Fentanyl 250mcg/5ml Vial IV 10/06/18 12:23 Q3MINP PRN Moderate to Severe Pain Fentanyl Citrate 50 mcg 10/05/18 12:23 Fentanyl 250mcg/5ml Vial IV 10/06/18 12:23 Q3MINP PRN Moderate to Severe Pain Fentanyl Citrate 50 mcg 10/05/18 12:24 Fentanyl 100mcg/2ml Vial IV 10/06/18 12:24 Q3MINP PRN Moderate to Severe Pain Fentanyl Citrate 25 mcg 10/05/18 12:24 Fentanyl 100mcg/2ml Vial IV 10/06/18 12:24 Q3MINP PRN Moderate to Severe Pain Flumazenil 0.2 mg 10/05/18 12:23 Romazicon 0.1mg/Ml 5ml Vial IV 10/05/18 23:00 NEEDED PRN Sedation Heparin Sodium (Porcine) 10,000 unit 10/05/18 12:24 Heparin 1,000 Units/Ml 10ml Vial (Stained Glass Window Designer) IV 10/05/18 16:24 NEEDED PRN Emergency Box Maintenance Manager Sodium Chloride 1,000 mls @ 25 mls/hr 10/05/18 12:30 Sod Chlor 0.9% 1000ml Bag IV 10/06/18 12:24 .Q25H STEPHY Midazolam HCl 1 mg 10/05/18 12:23 Midazolam 2mg/2ml Vial IV 10/06/18 12:23 Q3MINP PRN Sedation Midazolam HCl 1 mg 10/05/18 12:23 Midazolam 1mg/Ml 5ml Vial IV 10/06/18 12:23 Q3MINP PRN Sedation Naloxone HCl 0.4 mg 10/05/18 12:23 Narcan 0.4mg/Ml Vial IV 10/06/18 12:23 Q5MINP PRN Decreased respirations Nitroglycerin 0.4 mg 10/05/18 11:40 10/05/18 11:42 Nitrostat 0.4mg Sl Tablet SL 11/04/18 11:39 0.4 mg Q5MINP PRN Administration Chest Pain Nitroglycerin 800 mcg 10/05/18 12:24 Nitroglycerin 800mcg/8ml Syr (Stained Glass Window Designer) IV 10/06/18 12:24 NEEDED PRN Emergency Box Maintenance Manager Discontinued Medications Generic Name Dose Route Start Last Admin Trade Name Freq PRN Reason Stop Dose Admin Aspirin 324 mg 10/05/18 11:31 10/05/18 11:40 Aspirin 81mg Chewable Tablet PO 10/05/18 11:32 324 mg ONCE ONE Administration Diphenhydramine HCl 50 mg 10/05/18 12:24 Benadryl 50mg/1ml Vial IV 10/05/18 12:25 ONCE ONE Heparin Sodium/Sodium Chloride 3,000 unit 10/05/18 12:24 Heparin 1000 Units/500ml Ns (Stained Glass Window Designer) IV 10/05/18 12:25 ONCE ONE Sodium Chloride 1,000 mls @ 999 mls/hr 10/05/18 11:30 10/05/18 11:40 Sod Chlor 0.9% 1000ml Bag IV 10/05/18 12:30 999 mls/hr .Q1H1M STEPHY Administration Lidocaine HCl 20 ml 10/05/18 12:24 Lidocaine 1% 20ml Mdv IJ 10/05/18 12:25 ONCE ONE Nitroglycerin 0.4 mg 10/05/18 11:32 Nitrostat 0.4mg Sl Tablet SL 11/04/18 11:31 Q5MINP PRN Chest Pain Nitroglycerin 1 gm 10/05/18 11:58 10/05/18 12:04 Nitroglycerin 1 Inch Oint Udp TD 10/05/18 11:59 1 gm ONCE ONE Administration Verapamil HCl 2.5 mg 10/05/18 12:24 Verapamil 2.5mg/Ml 2ml Vial IV 10/05/18 12:25 ONCE ONE ORDERS Category Date Time Status Basic Metabolic Panel DAILY Lab 10/06/18 06:00 Ordered Complete Blood Count Auto Diff Timed Lab 10/06/18 06:00 Ordered - Radiology Data #1 Image(s): Chest Image Reviewed: Yes I reviewed the patient's radiology image Preliminary Findings: Normal/NAD - ECG Data Tracing #1 Normal Sinus Rhythm: Yes Ischemic changes: non-specific ST-T wave changes - Physician Consults Physician Consulted: geeta Reason -: Admission Additional Consult: milad Reason -: Pt condition Chest Pain HPI - General Chief Complaint: Chest Pain Stated Complaint: Chest Pain Time Seen by Provider: 10/05/18 11:40 Mode of Arrival: Ambulatory Source of Information: Patient, Medical Record Limitations: No Limitations Description of Symptoms (Recalled from ER Triage Doc. by RN): pt states that she went to see her ENT today and while at the ENT specialist she started experiencing heart burn, they advised her that her heart rate was low and referred her to Dr. Barker's office. Patient states that she went to dr. ohara office and that his office staff sent her to the ED for evaluation for low heart rate and heart burn, pt reports pain is "in the middle of her chest" non-radiating - History of Present Illness HPI narrative: pt with chest tightness today with dec hr and was seen in the ed - pt has had progressive pain over the last few days - no syncope and had abn gxt in 2018 MD complaint: chest pain indicative of cardiac Onset (ago): day(s) Duration: constant Activity at onset: during rest Pain location: left chest Severity: moderate Quality: dull Risk Factors for CAD: Hypertension, Family Hx of CAD Treatments prior to or on arrival for Cardiac Chest Pain: none - SUDA Score for Non-Stemi Age of Patient: 60-69 years old Heart Rate: 50-69 bpm Systolic Blood Pressure: 140-159 mmHg Serum Creatinine: 0.80-1.19 mg/dl CHF [place] Class: I-No CHF Other Risk Factors: None Non-Stemi Risk Score: 92 - Related Data Prior Cardiac Testing/Procedures: Stress Test On Oral Contraceptives: No Home Medications Medication Instructions Recorded Confirmed Atorvastatin Calcium [Atorvastatin 40 mg PO HS 09/21/17 10/05/18 40mg Tab] Duloxetine HCl 60 mg PO DAILY 09/21/17 10/05/18 Furosemide [Furosemide 20mg Tab] 20 mg PO BID 09/21/17 10/05/18 Levothyroxine Sodium 125 mcg PO DAILY 09/21/17 10/05/18 [Levothyroxine 125mcg (0.125mg) Tab] Lisinopril [Lisinopril 5mg Tablet] 5 mg PO DAILY 09/21/17 10/05/18 Pantoprazole Sodium [Protonix 40mg 40 mg PO BID 09/21/17 10/05/18 tablet] Potassium Chloride [K-Tab ER 10 10 meq PO BID 09/21/17 10/05/18 mEq] buPROPion HCl [Bupropion Xl] 150 mg PO DAILY 09/21/17 10/05/18 Aspirin [Aspirin 81mg EC Tab] 81 mg PO DAILY 10/05/18 10/05/18 Ciprofloxacin HCl/Dexameth 4 drp OTIC (EAR) BID 10/05/18 10/05/18 [Ciprodex] propranolol 20 mg tablet 20 mg PO DAILY #180 tab 10/05/18 10/05/18 Previous Rx's Medication Instructions Recorded Nitroglycerin 0.4 mg SL Q5MINP PRN #25 tab.subl 09/22/17 Allergies Allergy/AdvReac Type Severity Reaction Status Date / Time azithromycin Allergy Intermediate NA-NAUSEA/V Verified 10/05/18 11:29 OMITING latex Allergy Intermediate I-HIVES Verified 10/05/18 11:29 adhesive tape Allergy Unknown I-HIVES Verified 10/05/18 11:29 promethazine Allergy Unknown LEG PAIN Verified 10/05/18 11:29 [facility] History - Hepatitis A Screen Drug use history?: No High risk sexual behaviors?: No History of sexually transmitted infection?: No Currently employed?: No Childcare worker?: No Do you have indoor plumbing?: Yes Do you have electricity?: Yes Attestation statement:: This patient has been screened for Hepatitis A risk factors. I have reviewed the patient's past medical history: Yes Medical History: Reports:: Cancer, Congestive Heart Failure, Diabetes Mellitus Type 2, Hypertension Denies:: Diabetes Mellitus Type 1, MRSA Other Medical History: Reports: Anemia, Arthritis, Cataracts, Chemotherapy, Radiation Therapy, Thyroid Disease Comment: hx brain cancer- in remission per report Other Surgeries: Yes: Cancer Surgery, Hysterectomy-Total, Tubal Ligation Amputation: No Fractures: No - Social History Smoking Status: Never smoker Alcohol Intake: never Substance Use Type: denies use Occupational Status: retired Housing: house Household Members: spouse, family - Psychiatric History Expresses thoughts of harming self/others: None Suicide Plan Description: No Plan Family Hx:: Bleeding Disorder, Cancer, Heart Attack, Hyperlipidemia, Hypertension, Kidney Disease, Stroke ROS Obtained: Yes All systems reviewed & no additional complaints - Constitutional Constitutional: Denies fatigue - Eyes Eyes: Denies change in vision - ENT Ears, Nose, Mouth, and Throat: Denies sore throat - Cardiovascular Cardiovascular: Reports chest pain, Reports chest pain at rest - Respiratory Respiratory: No cough - Gastrointestinal Gastrointestingal: Denies: abdominal pain - Genitourinary Female Genitourinary: Denies hematuria - Musculoskeletal Musculoskeletal: Denies joint pain - Integumentary/Breasts Skin/Breast: Denies rash - Neurologic Neurologic: Denies seizure-like activity Physical Exam - General General appearance: alert, in no apparent distress - Head Head exam: normocephalic - Eye Eye exam: Present: PERRL, EOMI. Absent: scleral icterus - ENT ENT exam: Present: mucous membranes dry - Neck Neck exam: Present: trachea midline - Respiratory Respiratory exam: Present: normal lung sounds bilaterally. Absent: respiratory distress - Cardiovascular Cardiovascular exam: Present: regular rate, systolic murmur - Abdominal Exam Abdominal exam: Present: soft - Extremities Exam Extremities exam: Absent: calf tenderness - Neurological Exam Neurological exam: Present: alert, oriented X3, CN II-XII intact - Psychiatric Psychiatric exam: Present: normal affect - Skin Skin exam: Absent: rash
[2018-10-05 11:58] LABS: Anion Gap 15.8 mEq/L (5-15); Blood Urea Nitrogen 14 mg/dL (7-18); Calcium 8.8 mg/dL (8.5-10.1); Carbon Dioxide 24 mmol/L (21.0-32.0); Chloride 103 mmol/L (98-107); Glucose 173 mg/dL (74-106); Potassium 3.8 mmoL/L (3.5-5.1); Sodium 139 mmol/L (136-145)
--- NOTE | 2018-10-05 12:18 | Consult Report ---
History of Present Illness Consult date: 10/05/18 Requesting physician: Cheikh Yeboah Consult reason: chest pain Chief complaint: chest pain Additional Medical History:: 1. Pre-diabetes A. takes medication intermittently 2. chest pain A. Abnormal GXT Myoview, 09/2017, breast attenuation vs old non-transmural infarct with ischemia. 3. HTN 4. History of brain cancer, s/p surgery, chemo and radiation, 2018 5. Hypothyroidism, on replacement 6. GERD A. on PPI daily History of present illness: 68-year-old white female seen in the emergency department for chest pain (SS burning, chest pressure without radiation). Patient was seen in Dr. Elam's office today with notation of bradycardia for which she was sent to the cardiology clinic. While waiting in the waiting room to get checked in the patient relayed that she was not feeling well complaining of chest pain and was referred to the ER for further evaluation. In the ER patient had an EKG that showed sinus rhythm with old nonspecific changes, no acute ST segment changes. Patient was given sublingual nitroglycerin with improvement in symptoms. Cardiology consulted for evaluation recommendations Patient did have exercise Myoview 09/2017 that was read as possibly abnormal vs breast attenuation. Pt was getting pre-op evaluation for brain surgery (cancer) and decided to not pursue further cardiac evaluation. She had brain surgery without complications. She did undergo chemo and radiation for the brain cancer. While interviewing the patient, she complained of recurrent chest pain for which NTG paste was applied with resolution of symptoms. [facility] History Medical History: Reports:: Cancer, Congestive Heart Failure, Diabetes Mellitus Type 2, Hypertension Denies:: Diabetes Mellitus Type 1, MRSA *Have you ever received a pneumonia vaccine?: No *Have you received a flu vaccine this season?: Yes Other Medical History: Reports: Anemia, Arthritis, Cataracts, Chemotherapy, Radiation Therapy, Thyroid Disease Other Surgeries: Yes: Cancer Surgery, Hysterectomy-Total, Tubal Ligation Amputation: No Fractures: No - *Social History Smoking Status: Never smoker Alcohol Intake: never Substance Use Type: denies use *Occupational Status:: retired Housing: house Household Members: spouse, family *Travel in the last 8 weeks: None - Psychiatric History Expresses thoughts of harming self/others: None Suicide Plan Description: No Plan Family Hx:: Bleeding Disorder, Cancer, Heart Attack, Hyperlipidemia, Hypertension, Kidney Disease, Stroke Meds Home Medications Medication Instructions Recorded Confirmed Type Atorvastatin Calcium [Atorvastatin 40 mg PO HS 09/21/17 10/05/18 History 40mg Tab] Duloxetine HCl 60 mg PO DAILY 09/21/17 10/05/18 History Furosemide [Furosemide 20mg Tab] 20 mg PO BID 09/21/17 10/05/18 History Levothyroxine Sodium 125 mcg PO DAILY 09/21/17 10/05/18 History [Levothyroxine 125mcg (0.125mg) Tab] Lisinopril [Lisinopril 5mg Tablet] 5 mg PO DAILY 09/21/17 10/05/18 History Pantoprazole Sodium [Protonix 40mg 40 mg PO BID 09/21/17 10/05/18 History tablet] Potassium Chloride [K-Tab ER 10 10 meq PO BID 09/21/17 10/05/18 History mEq] buPROPion HCl [Bupropion Xl] 150 mg PO DAILY 09/21/17 10/05/18 History Nitroglycerin 0.4 mg SL Q5MINP PRN #25 tab.subl 09/22/17 10/05/18 Rx Aspirin [Aspirin 81mg EC Tab] 81 mg PO DAILY 10/05/18 10/05/18 History Ciprofloxacin HCl/Dexameth 4 drp OTIC (EAR) BID 10/05/18 10/05/18 History [Ciprodex] propranolol 20 mg tablet 20 mg PO DAILY #180 tab 10/05/18 10/05/18 History Allergies Allergy/AdvReac Type Severity Reaction Status Date / Time azithromycin Allergy Intermediate NA-NAUSEA/V Verified 10/05/18 11:29 OMITING latex Allergy Intermediate I-HIVES Verified 10/05/18 11:29 adhesive tape Allergy Unknown I-HIVES Verified 10/05/18 11:29 promethazine Allergy Unknown LEG PAIN Verified 10/05/18 11:29 Review of Systems - *Cardiovascular Reports chest pain, Reports shortness of breath with activity - *Respiratory Reports shortness of breath with activity, Denies cough - *Gastrointestinal Reports nausea, Denies abdominal pain, Denies vomiting - *Genitourinary Denies blood in urine, Denies pelvic pain Exam Vital signs and Labs for Last 24 Hours: Temp Pulse Resp BP Pulse Ox 98.4 F 56 L 18 148/93 H 95 10/05/18 11:21 10/05/18 12:10 10/05/18 12:10 10/05/18 12:10 10/05/18 12:10 Laboratory Results - last 24 hr 10/05/18 11:30: WBC 8.1, RBC 4.69, Hgb 14.5, Hct 41.5, MCV 88.6, MCH 30.8, MCHC 34.8, RDW 15.0, Plt Count 246, MPV 6.9 L, Neut % (Auto) 71.3, Lymph % (Auto) 21.6, [place] % (Auto) 6.0, Eos % (Auto) 0.7, Baso % (Auto) 0.3, Neut # (Auto) 5.8, Lymph # (Auto) 1.8, [place] # (Auto) 0.5, Eos # (Auto) 0.1, Baso # (Auto) 0.0 10/05/18 11:30: Sodium 139, Potassium 3.8, Chloride 103, Carbon Dioxide 24, Anion Gap 15.8 H, BUN 14, Creatinine 1.04 H, Estimated Creat Clear 59, Estimated GFR 53 L, Est GFR ( Amer) 64, Glucose 173 H, Calcium 8.8, Troponin I < 0.02 I & O for Last 24 hours: Intake & Output 10/03/18 10/04/18 10/05/18 10/06/18 11:59 11:59 11:59 11:59 Weight 160 lb 0.008 oz - *Routine HEENT Exam Head: Present: normocephalic Eye: Present: EOMI, PERRL ENT: Present: mucous membranes moist - *Routine Neck Exam Present: supple. Absent: JVD, carotid bruit - *Routine Respiratory Exam Present: CTA bilaterally. Absent: accessory muscle use, rales, rhonchi, wheezes - *Routine Cardiovascular Exam Present: RRR. Absent: murmur, gallop, rubs - *Routine Abdominal Exam Present: soft. Absent: tenderness, distended, guarding - *Routine Extremities Exam Absent: edema, calf tenderness - *Routine Neurological Exam Present: alert, oriented X3, moving all extremities Assessment and Plan (1) Chest pain Current visit: No Status: Acute Category: Medical Code(s): R07.9 - Chest pain, unspecified (2) Abnormal cardiovascular stress test Current visit: Yes Status: Acute Category: Medical Code(s): R94.39 - Abnormal result of other cardiovascular function study (3) Pre-diabetes Current visit: Yes Status: Acute Category: Medical Code(s): R73.03 - Prediabetes (4) History of brain cancer Current visit: Yes Status: Acute Category: Medical Code(s): Z85.841 - Personal history of malignant neoplasm of brain (5) Hyperlipidemia Current visit: No Status: Acute Category: Medical Code(s): E78.5 - Hyperlipidemia, unspecified - Assessment and plan all Dx Assessment and Plan for all problems:: 1. With abnormal stress test, recurrent chest pain that responds to NTG in a pre-diabetic patient, would recommend proceeding with C today to evaluate for CAD. Risks, benefits and procedure explained and patient agrees to proceed. 2. Further recommendations to follow.
--- NOTE | 2018-10-05 15:09 | Pharmacy Consult Notes ---
[facility] Pharmacy VTE Monitoring - Patient Demographics Admission date: 10/05/18 Report Date: 10/05/18 Time: 15:09 Allergies/Adverse Reactions: Patient Allergies azithromycin Allergy (Intermediate, Verified 10/05/18 11:29) NA-NAUSEA/VOMITING latex Allergy (Intermediate, Verified 10/05/18 11:29) I-HIVES adhesive tape Allergy (Unknown, Verified 10/05/18 11:29) I-HIVES promethazine Allergy (Unknown, Verified 10/05/18 11:29) LEG PAIN Height: 1.6 m Weight: 72.575 kg Patient Problems: Current Active Problems (Updated 10/05/18 @ 12:54 by Zbigniew Lisa MD) Chest pain (Acute) Abnormal cardiovascular stress test (Acute) Pre-diabetes (Acute) History of brain cancer (Acute) - VTE Risk Labs: VTE Related Lab Results Hgb 14.5 g/dL (12.2-16.2) 10/05/18 11:30 Hct 41.5 % (37.0-47.0) 10/05/18 11:30 Plt Count 246 K/mm3 (142-424) 10/05/18 11:30 BUN 14 mg/dL (7-18) 10/05/18 11:30 Creatinine 1.04 mg/dL (0.55-1.02) H 10/05/18 11:30 Estimated Creat Clear 59 mL/min (50-200) 10/05/18 11:30 - Prophylaxis VTE Prophylaxis Ordered?: Yes Types of VTE Prophylaxis: TEDS Knee High Location of Applied Device: Bilateral Lower Extremeties - VTE Diagnosis Confirmed Treatment or plan recommended: Continue Current Treatment
--- NOTE | 2018-10-05 18:24 | History & Physical Report ---
*Admission Date: 10/05/18 *Chief complaint: bradycardia and chest pain *History of present illness: 68-year-old white female originally seen in DR. Elam's office today for chronic right ear Otitis externa. During treatment was noted to have bradycardia, chest pain, and SOA. Sent to Cardiology office and subsequently to the ER due to Sx. Cardiology saw her in the emergency department for chest pain (SS burning, chest pressure without radiation). In the ER patient had an EKG that showed sinus rhythm with old nonspecific changes, no acute ST segment changes. Patient was given sublingual nitroglycerin with improvement in symptoms. Cardiology consulted for evaluation recommendations. Due to review of stress test from last year with reading of possibly abnormal vs breast attenuation, in the setting of chest pain, Cards recommended to pursue LHC. Prior to Cath she had been complaining of CP that responded to NG paste. Cardiac cath shows mild, non-flow limiting CAD with hyperdynamic EF (80%) with elevated LVEDP of 40 mm Hg consistent with diastolic dysfunction. Cardiology recommend medical therapy with combo of BB and CCB along with diuresis. Continue lisinopril and lasix as previously taking. Continue propranolol 20 mg but increase to BID and add verapamil extended release 120 mg daily if BP tolerates. Interviewed patient after getting to the floor after cath. No CP, SOA, SU, N/V/D. does appear mildly anxious. otherwise stable. Admitted to monitor overnight given change in meds and monitoring of HR/BP. [facility] History I have reviewed the patient's past medical history: Yes Medical History: Reports:: Cancer, Congestive Heart Failure, Diabetes Mellitus Type 2, Hypertension Denies:: Diabetes Mellitus Type 1, MRSA *Have you ever received a pneumonia vaccine?: No *Have you received a flu vaccine this season?: No Other Medical History: Reports: Anemia, Arthritis, Cataracts, Chemotherapy, Radiation Therapy, Thyroid Disease Other Surgeries: Yes: Cancer Surgery, Hysterectomy-Total, Tubal Ligation Amputation: No Fractures: No - *Social History Educational Level: Completed High School Smoking Status: Never smoker Alcohol Intake: never Substance Use Type: denies use *Occupational Status:: retired Housing: house Household Members: spouse, family *Travel in the last 8 weeks: None - Psychiatric History Expresses thoughts of harming self/others: None Suicide Plan Description: No Plan Family Hx:: Bleeding Disorder, Cancer, Heart Attack, Hyperlipidemia, Hypertension, Kidney Disease, Stroke Review of Systems - Review of Systems Review of systems:: pertinent systems reviewed and negative unless documented below - *Neurologic Denies seizure-like activity Meds Home Medications Medication Instructions Recorded Confirmed Type Atorvastatin Calcium [Atorvastatin 40 mg PO HS 09/21/17 10/05/18 History 40mg Tab] Duloxetine HCl 60 mg PO DAILY 09/21/17 10/05/18 History Furosemide [Furosemide 20mg Tab] 20 mg PO BID 09/21/17 10/05/18 History Levothyroxine Sodium 125 mcg PO DAILY 09/21/17 10/05/18 History [Levothyroxine 125mcg (0.125mg) Tab] Lisinopril [Lisinopril 5mg Tablet] 5 mg PO DAILY 09/21/17 10/05/18 History Pantoprazole Sodium [Protonix 40mg 40 mg PO BID 09/21/17 10/05/18 History tablet] Potassium Chloride [K-Tab ER 10 10 meq PO BID 09/21/17 10/05/18 History mEq] buPROPion HCl [Bupropion Xl] 150 mg PO DAILY 09/21/17 10/05/18 History Nitroglycerin 0.4 mg SL Q5MINP PRN #25 tab.subl 09/22/17 10/05/18 Rx Aspirin [Aspirin 81mg EC Tab] 81 mg PO DAILY 10/05/18 10/05/18 History Ciprofloxacin HCl/Dexameth 4 drp OTIC (EAR) BID 10/05/18 10/05/18 History [Ciprodex] propranolol 20 mg tablet 20 mg PO DAILY #180 tab 10/05/18 10/05/18 History Allergies Allergy/AdvReac Type Severity Reaction Status Date / Time azithromycin Allergy Intermediate NA-NAUSEA/V Verified 10/05/18 11:29 OMITING latex Allergy Intermediate I-HIVES Verified 10/05/18 11:29 adhesive tape Allergy Unknown I-HIVES Verified 10/05/18 11:29 promethazine Allergy Unknown LEG PAIN Verified 10/05/18 11:29 Exam Vital signs and Labs for Last 24 Hours: Temp Pulse Resp BP Pulse Ox 98.2 F 50 L 16 133/54 L 99 10/05/18 15:42 10/05/18 16:15 10/05/18 16:15 10/05/18 16:15 10/05/18 16:15 Laboratory Results - last 24 hr 10/05/18 11:30: WBC 8.1, RBC 4.69, Hgb 14.5, Hct 41.5, MCV 88.6, MCH 30.8, MCHC 34.8, RDW 15.0, Plt Count 246, MPV 6.9 L, Neut % (Auto) 71.3, Lymph % (Auto) 21.6, [place] % (Auto) 6.0, Eos % (Auto) 0.7, Baso % (Auto) 0.3, Neut # (Auto) 5.8, Lymph # (Auto) 1.8, [place] # (Auto) 0.5, Eos # (Auto) 0.1, Baso # (Auto) 0.0 10/05/18 11:30: Sodium 139, Potassium 3.8, Chloride 103, Carbon Dioxide 24, Anion Gap 15.8 H, BUN 14, Creatinine 1.04 H, Estimated Creat Clear 59, Estimated GFR 53 L, Est GFR ( Amer) 64, Glucose 173 H, Calcium 8.8, Troponin I < 0.02 10/05/18 15:06: Activated Clotting Time 238 H* I & O for Last 24 hours: Intake & Output 10/02/18 10/03/18 10/04/18 10/05/18 23:59 23:59 23:59 23:59 Intake Total 240 / 240 Balance 240 / 240 Weight 88.167 kg Narrative: - *Routine HEENT Exam Head: Present: normocephalic Eye: Present: EOMI, PERRL ENT: Present: mucous membranes moist - *Routine Neck Exam Present: supple. Absent: JVD, carotid bruit - *Routine Respiratory Exam Present: CTA bilaterally. Absent: accessory muscle use, rales, rhonchi, wheezes - *Routine Cardiovascular Exam Present: RRR. Absent: murmur, gallop, rubs - *Routine Abdominal Exam Present: soft. Absent: tenderness, distended, guarding - *Routine Extremities Exam Absent: edema, calf tenderness; Has compression dressing on right radial insertion site for cath trocar, no bleeding, - *Routine Neurological Exam Present: alert, oriented X3, moving all extremities Assessment and Plan (1) Chest pain Current visit: Yes Status: Acute Qualifiers: Chest pain type: precordial pain Qualified Code(s): R07.2 - Precordial pain Category: Medical Code(s): R07.9 - Chest pain, unspecified (2) Abnormal cardiovascular stress test Current visit: Yes Status: Acute Category: Medical Code(s): R94.39 - Abnormal result of other cardiovascular function study (3) Pre-diabetes Current visit: Yes Status: Acute Category: Medical Code(s): R73.03 - Prediabetes (4) History of brain cancer Current visit: Yes Status: Acute Category: Medical Code(s): Z85.841 - Personal history of malignant neoplasm of brain (5) Hyperlipidemia Current visit: No Status: Acute Category: Medical Code(s): E78.5 - Hyperlipidemia, unspecified (6) (HFpEF) heart failure with preserved ejection fraction Current visit: Yes Status: Acute Qualifiers: Heart failure chronicity: chronic Qualified Code(s): I50.32 - Chronic diastolic (congestive) heart failure Category: Medical Code(s): I50.30 - Unspecified diastolic (congestive) heart failure Optimize medical therapy per cardiology recs. BB, CCB, ACEi, Statin. Goal BP <130/80. s/p cardiac cath with hyperdynamic EF and elevated LVEDP. No FLow limiting lesions, medically manage. (7) Hypothyroidism Current visit: No Status: Chronic Qualifiers: Hypothyroidism type: acquired Qualified Code(s): E03.9 - Hypothyroidism, unspecified Category: Medical Code(s): E03.9 - Hypothyroidism, unspecified continue home regimen (8) Otitis externa Current visit: No Status: Chronic Qualifiers: Otitis externa type: unspecified type Chronicity: acute Laterality: right Qualified Code(s): H60.501 - Unspecified acute noninfective otitis externa, right ear Category: Medical Code(s): H60.90 - Unspecified otitis externa, unspecified ear noted to have aural polyp on exam in ENT office, initiated Ciprodex, continue.
[2018-10-06 07:34] LABS: Anion Gap 12.2 mEq/L (5-15); Calcium 8.5 mg/dL (8.5-10.1); Potassium 4.2 mmoL/L (3.5-5.1)
[2018-10-06 07:55] VITALS: BP 121/65
[2018-10-06 08:09] LABS: Chol/HDL Ratio 3.6 (1-3.5)
--- NOTE | 2018-10-06 08:58 | Discharge Summary ---
General - General Admission date:: 10/05/18 Discharge date: 10/06/18 HPI HPI: 68-year-old white female originally seen in DR. Elam's office today for chronic right ear Otitis externa. During treatment was noted to have bradycardia, chest pain, and SOA. Sent to Cardiology office and subsequently to the ER due to Sx. Cardiology saw her in the emergency department for chest pain (SS burning, chest pressure without radiation). In the ER patient had an EKG that showed sinus rhythm with old nonspecific changes, no acute ST segment changes. Patient was given sublingual nitroglycerin with improvement in symptoms. Cardiology consulted for evaluation recommendations. Due to review of stress test from last year with reading of possibly abnormal vs breast attenuation, in the setting of chest pain, Cards recommended to pursue LHC. Prior to Cath she had been complaining of CP that responded to NG paste. Cardiac cath shows mild, non-flow limiting CAD with hyperdynamic EF (80%) with elevated LVEDP of 40 mm Hg consistent with diastolic dysfunction. Cardiology recommend medical therapy with combo of BB and CCB along with diuresis. Continue lisinopril and lasix as previously taking. Continue propranolol 20 mg but increase to BID and add verapamil extended release 120 mg daily if BP tolerates. Interviewed patient after getting to the floor after cath. No CP, SOA, SU, N/V/D. does appear mildly anxious. otherwise stable. Admitted to monitor overnight given change in meds and monitoring of HR/BP. Objective Vital signs: Temp Pulse Resp BP Pulse Ox 98.0 F 53 L 17 121/65 96 10/06/18 07:53 10/06/18 07:53 10/06/18 07:53 10/06/18 07:53 10/06/18 07:53 Narrative: - *Routine HEENT Exam Head: Present: normocephalic Eye: Present: EOMI, PERRL ENT: Present: mucous membranes moist - *Routine Neck Exam Present: supple. Absent: JVD, carotid bruit - *Routine Respiratory Exam Present: CTA bilaterally. Absent: accessory muscle use, rales, rhonchi, wheezes - *Routine Cardiovascular Exam Present: RRR. Absent: murmur, gallop, rubs - *Routine Abdominal Exam Present: soft. Absent: tenderness, distended, guarding - *Routine Extremities Exam Absent: edema, calf tenderness; right radial insertion site for cath trocar, CDI - *Routine Neurological Exam Present: alert, oriented X3, moving all extremities Results Labs on day of discharge: Labs from last 24 hours 10/06/18 10/06/18 10/05/18 06:29 06:29 15:06 WBC RBC Hgb Hct MCV MCH MCHC RDW Plt Count MPV Neut % (Auto) Lymph % (Auto) [place] % (Auto) Eos % (Auto) Baso % (Auto) Neut # (Auto) Lymph # (Auto) [place] # (Auto) Eos # (Auto) Baso # (Auto) Activated Clotting Time 238 H* Sodium 140 Potassium 4.2 Chloride 106 Carbon Dioxide 26 Anion Gap 12.2 BUN 12 Creatinine 1.00 Estimated Creat Clear 73 Estimated GFR 55 L Est GFR ( Amer) 67 Glucose 156 H Calcium 8.5 Magnesium 1.8 Troponin I Triglycerides 110 Cholesterol 128 L LDL Cholesterol 70 VLDL Cholesterol 22 HDL Cholesterol 36 Cholesterol/HDL Ratio 3.6 H 10/05/18 10/05/18 11:30 11:30 WBC 8.1 RBC 4.69 Hgb 14.5 Hct 41.5 MCV 88.6 MCH 30.8 MCHC 34.8 RDW 15.0 Plt Count 246 MPV 6.9 L Neut % (Auto) 71.3 Lymph % (Auto) 21.6 [place] % (Auto) 6.0 Eos % (Auto) 0.7 Baso % (Auto) 0.3 Neut # (Auto) 5.8 Lymph # (Auto) 1.8 [place] # (Auto) 0.5 Eos # (Auto) 0.1 Baso # (Auto) 0.0 Activated Clotting Time Sodium 139 Potassium 3.8 Chloride 103 Carbon Dioxide 24 Anion Gap 15.8 H BUN 14 Creatinine 1.04 H Estimated Creat Clear 59 Estimated GFR 53 L Est GFR ( Amer) 64 Glucose 173 H Calcium 8.8 Magnesium Troponin I < 0.02 Triglycerides Cholesterol LDL Cholesterol VLDL Cholesterol HDL Cholesterol Cholesterol/HDL Ratio DS: Diagnosis - Discharge Diagnosis (1) Chest pain Status: Acute (2) Abnormal cardiovascular stress test Status: Acute (3) Pre-diabetes Status: Acute (4) History of brain cancer Status: Acute (5) Hyperlipidemia Status: Acute (6) (HFpEF) heart failure with preserved ejection fraction Status: Acute (7) Hypothyroidism Status: Chronic (8) Otitis externa Status: Chronic Discharge Plan - Patient Discharge Instructions Patient Instructions: Angina, Cardiac Catheterization, DI for Angina, Surgical Site Infection - Follow up Plan Home Medications: Home Medications Medication Instructions Recorded Confirmed Type Atorvastatin Calcium [Atorvastatin 40 mg PO HS 09/21/17 10/05/18 History 40mg Tab] Duloxetine HCl 60 mg PO DAILY 09/21/17 10/05/18 History Furosemide [Furosemide 20mg Tab] 20 mg PO BID 09/21/17 10/05/18 History Levothyroxine Sodium 125 mcg PO DAILY 09/21/17 10/05/18 History [Levothyroxine 125mcg (0.125mg) Tab] Lisinopril [Lisinopril 5mg Tablet] 5 mg PO DAILY 09/21/17 10/05/18 History Pantoprazole Sodium [Protonix 40mg 40 mg PO BID 09/21/17 10/05/18 History tablet] Potassium Chloride [K-Tab ER 10 10 meq PO BID 09/21/17 10/05/18 History mEq] buPROPion HCl [Bupropion Xl] 150 mg PO DAILY 09/21/17 10/05/18 History Nitroglycerin 0.4 mg SL Q5MINP PRN #25 tab.subl 09/22/17 10/05/18 Rx Aspirin [Aspirin 81mg EC Tab] 81 mg PO DAILY 10/05/18 10/05/18 History Ciprofloxacin HCl/Dexameth 4 drp OTIC (EAR) BID 10/05/18 10/05/18 History [Ciprodex] propranolol 20 mg tablet 20 mg PO DAILY #180 tab 10/05/18 10/05/18 History Prescriptions/Medication Reconciliation: No Action propranolol 20 mg tablet 20 mg PO DAILY #180 tab Pantoprazole Sodium [Protonix 40mg tablet] 40 mg PO BID Levothyroxine Sodium [Levothyroxine 125mcg (0.125mg) Tab] 125 mcg PO DAILY Lisinopril [Lisinopril 5mg Tablet] 5 mg PO DAILY Furosemide [Furosemide 20mg Tab] 20 mg PO BID Duloxetine HCl 60 mg PO DAILY buPROPion HCl [Bupropion Xl] 150 mg PO DAILY Atorvastatin Calcium [Atorvastatin 40mg Tab] 40 mg PO HS Nitroglycerin 0.4 mg SL Q5MINP PRN #25 tab.subl PRN Reason: chest pain Ciprofloxacin HCl/Dexameth [Ciprodex] 4 drp OTIC (EAR) BID Aspirin [Aspirin 81mg EC Tab] 81 mg PO DAILY Potassium Chloride [K-Tab ER 10 mEq] 10 meq PO BID
== END 2018-10-06 10:25 | disposition home or self-care (01) ==
LOC: ER 11:20 → 2ND 11:20
PROVIDERS: ADMIT Emergency Medicine; ATTEND Internal Medicine Adolescent Medicine
CPT/HCPCS: 36415; 71010; 71045; 80048; 80061; 83735; 84443; 84484; 85025; 85347; 93005; 93458; 96365; 99152; 99284; C1725; C1769; G0378; J1644; Q9967

== ENCOUNTER → 2018-10-18 13:39 | Outpatient (CLI) | payer MEDICARE, OTHER, SELFPAY ==
--- NOTE | 2018-10-18 13:41 | US_ITS ---
US thyroid HISTORY: ITS.REASON: hypothyroid ORDERING PHYSICIAN: Mo Elam MD PATIENT AGE: 68 years Comparison: 08/04/2010 FINDINGS: The right lobe is 2.7 x 1 x 0.7 cm. The left lobe is 2.8 x 1.3 x 0.8 cm. No nodules apparent. IMPRESSION: Small thyroid gland otherwise negative
== END ==
PROVIDERS: PCP Internal Medicine Adolescent Medicine; Visit Provider Otolaryngology
DX: E03.9 Hypothyroidism, unspecified (principal)
CPT/HCPCS: 76536

== ENCOUNTER → 2018-10-22 13:57 | Outpatient (CLI) | payer MEDICARE, OTHER, SELFPAY ==
--- NOTE | 2018-10-22 13:59 | CA_ITS ---
PROCEDURE: 2-D M-mode and color Doppler study INDICATIONS FOR THE TEST: Chest pain + COPD Heart Murmur Tobacco Smoking Palpitations Fatigue Syncope Edema Hypertension+Diabetes Mellitus+ Rheumatic Fever SOB+PEREIRA Obesity Hyperlipidemia+ Family History HD Additional History CHF,HX BRAIN CA PATIENT INFORMATION HEIGHT: 63 WEIGHT:181 GENDER: Female B/P:138/71 2-D/M-MODE INTERPRETATION: 2-D MEASUREMENTS OBSERVED VALUES IN CMS Right Ventricular Dimension (RVDd) 2.1 Interventricular Septum (Thickness)(IVsd) 1.0 Left Ventricular Internal Dimensions(LVIDd) 4.8 Left Ventricular Posterior Wall (Thickness)(LVPWd) 0.9 Aortic Root 2.3 Aortic Cusp Separation 1.8 Left Atrial Dimensions (LAD) 2.3 2D 1. Left atrium is mildly enlarged, left ventricle is normal size, mild concentric left ventricular hypertrophy, visually estimated ejection fraction 55% with no regional wall motion abnormality. 2. The right atrium and right ventricle are normal size and contractility. 3. The aortic valve is minimally thickened and calcified. 4. The mitral and tricuspid valve leaflets are minimally thickened. 5. The pulmonic valve is poorly visualized. 6. No significant pericardial effusion noted. DOPPLER INTERROGATION: Doppler interrogation of the aortic, mitral and tricuspid valvular presence of mild mitral and tricuspid regurgitation, tricuspid regurgitation jet velocity is inadequate for calculation of the right ventricular systolic pressure, diastolic parameters are inconclusive. CONCLUSION: 1. Mildly enlarged left atrium, normal left ventricular size, mild concentric left ventricular hypertrophy, visually estimated ejection fraction 55% with no regional wall motion abnormality, diastolic parameters are inconclusive. 2. Mild mitral and tricuspid regurgitation 3. No significant pericardial effusion noted.
== END ==
PROVIDERS: PCP Internal Medicine Adolescent Medicine; Visit Provider Nurse Practitioner Family
DX: E78.5 Hyperlipidemia, unspecified (principal); I50.30 Unspecified diastolic (congestive) heart failure; R06.00 Dyspnea, unspecified; R07.9 Chest pain, unspecified; Z85.841 Personal history of malignant neoplasm of brain
CPT/HCPCS: 93306

== ENCOUNTER → 2018-10-25 14:38 | Outpatient (CLI) | payer MEDICARE, OTHER, SELFPAY ==
[2018-10-25 16:26] LABS: Free T4 (Free Thyroxine) 2.27 ng/dl (0.76-1.46)
[2018-10-28 08:18] LABS: Thyroid Peroxidase Antibodies 13 IU/mL (0-34)
[2018-10-28 17:29] LABS: Triiodothyronine (T3) Free 4.7 pg/mL (2.0-4.4)
[2018-10-31 07:42] LABS: Thyroid Stimulating Immunoglob <0.10 IU/L (0.00-0.55)
== END ==
PROVIDERS: Visit Provider Otolaryngology
DX: E03.4 Atrophy of thyroid (acquired) (principal); E03.9 Hypothyroidism, unspecified
CPT/HCPCS: 36415; 84439; 84445; 84481; 86376

== ENCOUNTER 2018-11-10 16:29 | Emergency (ER) | payer MEDICARE, OTHER, SELFPAY ==
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
--- NOTE | 2018-11-10 16:30 | XR_ITS ---
XR chest portable HISTORY: Chest pain ITS.REASON: cp ORDERING PHYSICIAN: Kvng Goddard MD PATIENT AGE: 68 years COMPARISON: 10/05/2018 FINDINGS: The cardiomediastinal silhouette and pulmonary vascularity are within normal limits. No lobar consolidation or collapse. Slight increased density overlies the anterior aspect of the right fourth rib in the right infrahilar region and may be due to an area of summation density versus atelectasis or infiltrate or developing nodule. The remaining lungs are clear. No acute bony anomalies. IMPRESSION: Possible summation artifact right in right hilar region versus underlying parenchymal pathology. Consider PA and lateral chest for further evaluation Otherwise negative
--- NOTE | 2018-11-10 16:32 | HMH.EDGENADL ---
ED Disposition Clinical Impression: Chest pain Qualifiers: Chest pain type: unspecified Qualified Code(s): R07.9 - Chest pain, unspecified Disposition: Left Against Medical Advice Condition on Discharge: Good Referrals: Cheikh Yeboah MD [Primary Care Provider] - - Critical Care Critical Care Time: No Attestation: On , the high probability of a clinically significant, sudden or life threatening deterioration of the following system(s) required my full and direct attention, intervention and personal management. The time I documented below is in addition to time spent performing reported procedures but includes the following listed in this critical care notation. Medical Decision Making - Medical Records Medical records reviewed: Yes: I reviewed the patient's medical records. - Bon Inquiry Pt receiving controlled substance: No Vital Signs: 11/10/18 16:45 11/10/18 17:59 11/10/18 18:00 Temperature 97.9 F Temperature Source Oral Pulse Rate [Left Radial] 61 51 L 56 L Respiratory Rate 20 Blood Pressure [Right Arm] 133/61 126/66 125/79 Blood Pressure Mean [Right Arm] 85 86 94 Blood Pressure Source [Right Arm] Automatic Cuff Blood Pressure Position [Right Arm] Sitting 02 Sat by Pulse Oximetry 98 98 98 Oxygen Delivery Method Room Air - Lab Data Lab results reviewed: Yes: I reviewed the patient's lab results. Lab Results 11/10/18 16:30: WBC 5.8, RBC 4.53, Hgb 13.8, Hct 38.6, MCV 85.3, MCH 30.6, MCHC 35.8 H, RDW 13.7, Plt Count 174, MPV 7.3 L, Neut % (Auto) 62.2, Lymph % (Auto) 30.3, [place] % (Auto) 6.7, Eos % (Auto) 0.7, Baso % (Auto) 0.1, Neut # (Auto) 3.6, Lymph # (Auto) 1.8, [place] # (Auto) 0.4, Eos # (Auto) 0.0, Baso # (Auto) 0.0 11/10/18 16:30: Sodium 138, Potassium 3.5, Chloride 101, Carbon Dioxide 24, Anion Gap 16.5 H, BUN 12, Creatinine 0.96, Estimated GFR 58 L, Est GFR ( Amer) 70, Glucose 312 H, Calcium 8.6, Total Bilirubin 1.7 H, AST 21, ALT 38, Alkaline Phosphatase 119 H, Troponin I < 0.02, Total Protein 6.7, Albumin 3.4, Globulin 3.3 H, Albumin/Globulin Ratio 1.0 L, Lipase 138 11/10/18 16:30: D-Dimer < 100 11/10/18 16:30: B-Natriuretic Peptide 104 H Result diagrams: 11/10/18 16:30 11/10/18 16:30 Orders (Tests/Meds): ED MEDICATIONS Discontinued Medications Generic Name Dose Route Start Last Admin Trade Name Ana PRN Reason Stop Dose Admin Aspirin 324 mg 11/10/18 16:32 11/10/18 17:27 Aspirin 81mg Chewable Tablet PO 11/10/18 16:33 324 mg ONCE ONE Administration Pantoprazole Sodium 40 mg 11/10/18 16:32 11/10/18 17:27 Protonix 40mg Vial IV 11/10/18 16:33 40 mg ONCE ONE Administration Sodium Chloride 8 ml 11/10/18 16:32 11/10/18 17:27 Saline Flush 10ml Syringe IV 11/10/18 16:33 8 ml ONCE ONE Administration ORDERS Category Date Time Status XR chest portable Stat Exams 11/10/18 16:30 Taken ECG Request by Dr/Nse Stat Y 11/10/18 16:30 Ordered - Radiology Data #1 Image(s): Chest Image Reviewed: Yes I reviewed the patient's radiology image Preliminary Findings: Normal/NAD - ECG Data Tracing #1 I reviewed this ECG and interpreted as documented below: Normal Sinus Rhythm: Yes (no stemi) Medical Decision Narrative: pt alert and oriented x 3, nad, refuses admission or further testing, and leaves ama, pt aware she could suddenly or become permanently disabled. pt aware she may return at anytime General Adult HPI - General Stated complaint: chest pain Time Seen by Provider: 11/10/18 16:33 Source of Information: Patient - History of Present Illness HPI narrative: mild to mod off and on anterior chest pain pressure today, nonrad, gone now, no injury - Related Data Home Medications Medication Instructions Recorded Confirmed Atorvastatin Calcium [Atorvastatin 40 mg PO HS 09/21/17 11/02/18 40mg Tab] Duloxetine HCl 60 mg PO DAILY 09/21/17 11/02/18 Levothyroxine Sodium 125 mcg PO DAILY 09/21/17 0
--- NOTE | 2018-11-10 16:35 | ED_ITS ---
ED Disposition Clinical Impression: Chest pain Qualifiers: Chest pain type: unspecified Qualified Code(s): R07.9 - Chest pain, unspecified Disposition: Left Against Medical Advice Condition on Discharge: Good Referrals: Cheikh Yeboah MD [Primary Care Provider] - - Critical Care Critical Care Time: No Attestation: On , the high probability of a clinically significant, sudden or life threatening deterioration of the following system(s) required my full and direct attention, intervention and personal management. The time I documented below is in addition to time spent performing reported procedures but includes the following listed in this critical care notation. Medical Decision Making - Medical Records Medical records reviewed: Yes: I reviewed the patient's medical records. - Bon Inquiry Pt receiving controlled substance: No Vital Signs: 11/10/18 16:45 11/10/18 17:59 11/10/18 18:00 Temperature 97.9 F Temperature Source Oral Pulse Rate [Left Radial] 61 51 L 56 L Respiratory Rate 20 Blood Pressure [Right Arm] 133/61 126/66 125/79 Blood Pressure Mean [Right Arm] 85 86 94 Blood Pressure Source [Right Arm] Automatic Cuff Blood Pressure Position [Right Arm] Sitting 02 Sat by Pulse Oximetry 98 98 98 Oxygen Delivery Method Room Air - Lab Data Lab results reviewed: Yes: I reviewed the patient's lab results. Lab Results 11/10/18 16:30: WBC 5.8, RBC 4.53, Hgb 13.8, Hct 38.6, MCV 85.3, MCH 30.6, MCHC 35.8 H, RDW 13.7, Plt Count 174, MPV 7.3 L, Neut % (Auto) 62.2, Lymph % (Auto) 30.3, [place] % (Auto) 6.7, Eos % (Auto) 0.7, Baso % (Auto) 0.1, Neut # (Auto) 3.6, Lymph # (Auto) 1.8, [place] # (Auto) 0.4, Eos # (Auto) 0.0, Baso # (Auto) 0.0 11/10/18 16:30: Sodium 138, Potassium 3.5, Chloride 101, Carbon Dioxide 24, Anion Gap 16.5 H, BUN 12, Creatinine 0.96, Estimated GFR 58 L, Est GFR ( Amer) 70, Glucose 312 H, Calcium 8.6, Total Bilirubin 1.7 H, AST 21, ALT 38, Alkaline Phosphatase 119 H, Troponin I < 0.02, Total Protein 6.7, Albumin 3.4, Globulin 3.3 H, Albumin/Globulin Ratio 1.0 L, Lipase 138 11/10/18 16:30: D-Dimer < 100 11/10/18 16:30: B-Natriuretic Peptide 104 H Result diagrams: 11/10/18 16:30 11/10/18 16:30 Orders (Tests/Meds): ED MEDICATIONS Discontinued Medications Generic Name Dose Route Start Last Admin Trade Name Freq PRN Reason Stop Dose Admin Aspirin 324 mg 11/10/18 16:32 11/10/18 17:27 Aspirin 81mg Chewable Tablet PO 11/10/18 16:33 324 mg ONCE ONE Administration Pantoprazole Sodium 40 mg 11/10/18 16:32 11/10/18 17:27 Protonix 40mg Vial IV 11/10/18 16:33 40 mg ONCE ONE Administration Sodium Chloride 8 ml 11/10/18 16:32 11/10/18 17:27 Saline Flush 10ml Syringe IV 11/10/18 16:33 8 ml ONCE ONE Administration ORDERS Category Date Time Status XR chest portable Stat Exams 11/10/18 16:30 Taken ECG Request by /Nse Stat Y 11/10/18 16:30 Ordered - Radiology Data #1 Image(s): Chest Image Reviewed: Yes I reviewed the patient's radiology image Preliminary Findings: Normal/NAD - ECG Data Tracing #1 I
[2018-11-10 16:45] VITALS: BP 133/61; PULSE 61; RESP 20; TEMP 36.6; O2SAT 98; BMI 35.4
[2018-11-10 16:49] LABS: Basophils % 0.1 % (0.1-2.0); Eosinophils % 0.7 % (0.1-12.0); Hematocrit 38.6 % (37.0-47.0); Hemoglobin 13.8 g/dL (12.2-16.2); Lymphocytes # 1.8 K/mm3 (0.7-4.5); Lymphocytes % 30.3 % (10-50); Mean Corpuscular HGB Conc 35.8 g/dL (31.8-35.4); Mean Corpuscular Hemoglobin 30.6 pg (27.0-31.2); Mean Corpuscular Volume 85.3 fl (81-99); Mean Platelet Volume 7.3 fl (7.4-10.4); Monocytes # 0.4 K/mm3 (0.1-1.0); Monocytes % 6.7 % (1.7-9.3); Neutrophils # 3.6 K/mm3 (1.8-7.8); Neutrophils % 62.2 % (37.0-80.0); Platelet Count 174 K/mm3 (142-424); Red Blood Count 4.53 M/mm3 (4.20-5.40); Red Cell Distribution Width 13.7 % (11.5-17.5); White Blood Count 5.8 K/mm3 (4.8-10.8)
[2018-11-10 17:06] LABS: Alanine Aminotransferase 38 U/L (12-78); Albumin Level 3.4 gm/dL (3.4-5.0); Alkaline Phosphatase 119 U/L (46-116); Anion Gap 16.5 mEq/L (5-15); Aspartate Amino Transferase 21 U/L (15-37); Bilirubin,Total 1.7 mg/dL (0.2-1.0); Blood Urea Nitrogen 12 mg/dL (7-18); Calcium 8.6 mg/dL (8.5-10.1); Carbon Dioxide 24 mmol/L (21.0-32.0); Chloride 101 mmol/L (98-107); Creatinine,Serum 0.96 mg/dL (0.55-1.02); Estimated Glomerular Filt Rate 58 ml/min (>60); GFR (African American) 70 ML/MIN (>60); Globulin 3.3 gm/dl (1.3-3.2); Glucose 312 mg/dL (74-106); Lipase 138 u/L (73-393); Potassium 3.5 mmoL/L (3.5-5.1); Sodium 138 mmol/L (136-145); Total Protein,Serum 6.7 gm/dL (6.4-8.2); Troponin I < 0.02 ng/ml (0.00-0.06)
[2018-11-10 17:18] LABS: D-Dimer < 100 ng/mL (0-400)
[2018-11-10 17:59] VITALS: BP 126/66; PULSE 51; O2SAT 98
[2018-11-10 18:00] VITALS: BP 125/79; PULSE 56; O2SAT 98
[2018-11-10 19:15] VITALS: BP 121/74; PULSE 82; RESP 18; TEMP 36.7; O2SAT 99
== END 2018-11-10 19:23 | disposition left against medical advice (07) ==
PROVIDERS: Emergency Provider Emergency Medicine Emergency Medical Services; PCP Internal Medicine Adolescent Medicine
DX: R07.9 Chest pain, unspecified (principal); E11.9 Type 2 diabetes mellitus without complications; I10 Essential (primary) hypertension; Z91.040 Latex allergy status
CPT/HCPCS: 71045; 80053; 83690; 83880; 84484; 85025; 85378; 93005; 96374; 96375; 99284

== ENCOUNTER → 2018-11-27 10:33 | Outpatient (CLI) | payer MEDICARE, OTHER, SELFPAY ==
[2018-11-27 10:55] LABS: Anion Gap 9.5 mEq/L (5-15); Blood Urea Nitrogen 12 mg/dL (7-18); Calcium 8.8 mg/dL (8.5-10.1); Carbon Dioxide 29 mmol/L (21.0-32.0); Chloride 107 mmol/L (98-107); Creatinine,Serum 0.82 mg/dL (0.55-1.02); Estimated Glomerular Filt Rate 69 ml/min (>60); GFR (African American) 84 ML/MIN (>60); Glucose 253 mg/dL (74-106); Potassium 3.5 mmoL/L (3.5-5.1); Sodium 142 mmol/L (136-145)
== END ==
PROVIDERS: Visit Provider Nurse Practitioner Family
DX: E78.2 Mixed hyperlipidemia (principal); I11.9 Hypertensive heart disease without heart failure; I25.10 Atherosclerotic heart disease of native coronary artery without angina pectoris; R06.02 Shortness of breath; R94.30 Abnormal result of cardiovascular function study, unspecified
CPT/HCPCS: 36415; 80048

== ENCOUNTER → 2019-02-08 12:18 | Outpatient (CLI) | payer MEDICARE, OTHER, SELFPAY ==
[2019-02-08 13:24] LABS: Hemoglobin A1C 9.3 % (0.0-7.0)
[2019-02-08 13:29] LABS: Basophils % 0.4 % (0.1-2.0); Eosinophils # 0.1 K/mm3 (0.0-0.4); Eosinophils % 1.8 % (0.1-12.0); Hemoglobin 13.8 g/dL (12.2-16.2); Lymphocytes # 1.7 K/mm3 (0.7-4.5); Lymphocytes % 27.6 % (10-50); Mean Corpuscular HGB Conc 32.9 g/dL (31.8-35.4); Mean Corpuscular Hemoglobin 30.1 pg (27.0-31.2); Mean Corpuscular Volume 91.4 fl (81-99); Mean Platelet Volume 7.9 fl (7.4-10.4); Monocytes # 0.3 K/mm3 (0.1-1.0); Monocytes % 4.6 % (1.7-9.3); Neutrophils % 65.6 % (37.0-80.0); Platelet Count 204 K/mm3 (142-424); Red Blood Count 4.59 M/mm3 (4.20-5.40); Red Cell Distribution Width 14.4 % (11.5-17.5); White Blood Count 6.1 K/mm3 (4.8-10.8)
[2019-02-08 14:09] LABS: Troponin I < 0.02 ng/ml (0.00-0.06)
[2019-02-08 14:14] LABS: Alanine Aminotransferase 32 U/L (12-78); Albumin Level 4.1 gm/dL (3.4-5.0); Albumin/Globulin Ratio 1.3 (1.1-1.8); Alkaline Phosphatase 104 U/L (46-116); Anion Gap 11.4 mEq/L (5-15); Aspartate Amino Transferase 28 U/L (15-37); Bilirubin,Total 1.3 mg/dL (0.2-1.0); Blood Urea Nitrogen 10 mg/dL (7-18); Calcium 9.3 mg/dL (8.5-10.1); Carbon Dioxide 32 mmol/L (21.0-32.0); Chloride 102 mmol/L (98-107); Creatinine,Serum 0.95 mg/dL (0.55-1.02); Estimated Glomerular Filt Rate 58 ml/min (>60); Free Thyroxine Index 1.8 ug/dL (5.93-13.13); GFR (African American) 71 ML/MIN (>60); Globulin 3.2 gm/dl (1.3-3.2); Glucose 209 mg/dL (74-106); Potassium 4.4 mmoL/L (3.5-5.1); Sodium 141 mmol/L (136-145); T4 (Thyroxine) 6.1 ug/dl (4.7-13.3); Thyroid Stimulating Hormone 13.15 uIU/ml (0.358-3.740); Total Protein,Serum 7.3 gm/dL (6.4-8.2); Triiodothryronine (T3) Uptake 29 % (31-39)
== END ==
PROVIDERS: Visit Provider Internal Medicine Adolescent Medicine
DX: I10 Essential (primary) hypertension (principal); E11.9 Type 2 diabetes mellitus without complications
CPT/HCPCS: 36415; 80053; 83036; 84436; 84443; 84479; 84484; 85025

== ENCOUNTER → 2019-02-27 08:41 | Outpatient (CLI) | payer MEDICARE, OTHER, SELFPAY ==
--- NOTE | 2019-02-27 08:56 | US_ITS ---
PROCEDURE: US ABDOMEN LIMITED CLINICAL INDICATION: ABD PAIN Right upper quadrant pain COMPARISON: No exams were available for comparison FINDINGS: PANCREAS: Unremarkable. No obvious mass or abnormal fluid collection. No ductal dilatation LIVER: No focal liver lesions demonstrated. Homogeneous echogenicity. No intrahepatic biliary ductal dilatation evident. There is appropriate direction of blood flow within a non dilated portal vein RIGHT KIDNEY: Unremarkable. Normal size and echogenicity. No hydronephrosis GALLBLADDER: Status post cholecystectomy. Common bile duct is slightly prominent at 7 mm which may be physiologic response to the previous cholecystectomy. IMPRESSION: Status post cholecystectomy. Otherwise negative Dictated by: Peter Huntley MD 02/28/2019 11:05 Electronically signed by Peter Huntley MD in [place] 02/28/2019 11:05
== END ==
PROVIDERS: PCP Internal Medicine Adolescent Medicine; Visit Provider Internal Medicine Adolescent Medicine
DX: R10.11 Right upper quadrant pain (principal)
CPT/HCPCS: 76705

== ENCOUNTER → 2019-03-06 11:36 | Outpatient (CLI) | payer MEDICARE, OTHER, SELFPAY ==
[2019-03-06 13:03] LABS: Anion Gap 16.8 mEq/L (5-15); Blood Urea Nitrogen 17 mg/dL (7-18); Calcium 9.5 mg/dL (8.5-10.1); Carbon Dioxide 26 mmol/L (21.0-32.0); Chloride 101 mmol/L (98-107); Creatinine,Serum 0.91 mg/dL (0.55-1.02); Estimated Glomerular Filt Rate 61 ml/min (>60); GFR (African American) 74 ML/MIN (>60); Glucose 130 mg/dL (74-106); Potassium 3.8 mmoL/L (3.5-5.1); Sodium 140 mmol/L (136-145)
== END ==
PROVIDERS: Visit Provider Nurse Practitioner Family
DX: E78.5 Hyperlipidemia, unspecified (principal); I11.9 Hypertensive heart disease without heart failure; R06.02 Shortness of breath
CPT/HCPCS: 36415; 80048

== ENCOUNTER → 2019-03-26 09:35 | Outpatient (CLI) | payer MEDICARE, OTHER, SELFPAY | PROVIDERS: PCP Internal Medicine Adolescent Medicine; Visit Provider Internal Medicine Adolescent Medicine | DX: Z71.3 Dietary counseling and surveillance (principal); E11.9 Type 2 diabetes mellitus without complications | CPT/HCPCS: 97802 ==

== ENCOUNTER → 2019-04-01 12:09 | Outpatient (CLI) | payer MEDICARE, OTHER, SELFPAY ==
[2019-04-01 13:46] LABS: Anion Gap 16.5 mEq/L (5-15); Blood Urea Nitrogen 15 mg/dL (7-18); Calcium 9.6 mg/dL (8.5-10.1); Carbon Dioxide 26 mmol/L (21.0-32.0); Chloride 103 mmol/L (98-107); Estimated Glomerular Filt Rate 62 ml/min (>60); GFR (African American) 75 ML/MIN (>60); Glucose 124 mg/dL (74-106); Potassium 4.5 mmoL/L (3.5-5.1); Sodium 141 mmol/L (136-145)
== END ==
PROVIDERS: Visit Provider Nurse Practitioner Family
DX: C71.9 Malignant neoplasm of brain, unspecified (principal); E78.2 Mixed hyperlipidemia; G47.00 Insomnia, unspecified; I11.9 Hypertensive heart disease without heart failure; I20.9 Angina pectoris, unspecified; R06.02 Shortness of breath; R60.9 Edema, unspecified; R94.30 Abnormal result of cardiovascular function study, unspecified
CPT/HCPCS: 36415; 80048

== ENCOUNTER → 2019-04-03 11:48 | Outpatient (CLI) | payer MEDICARE, OTHER, SELFPAY ==
--- NOTE | 2019-04-03 | CA_ITS ---
APPROVED REPORT Exam: Pharmacologic Technologist: Rebecca Sherman Ht: 5 ft 3 in Wt: 170 lbs BSA: 1.80 m2 HR: 62 bpm BP: 127/57 mmHg Indications: Angina, Shortness of Air Medical History Medications: Lisinopril,,,,, Levothyroxine,,,,, Furosemide (LASIX),,,,, Aspirin,,,,, Verapamil,,,,, Pantoprazole,,,,, Atorvastatin,,,,, Escitalopram,,,,, BisOPROLOL,,,,, Janumet,,,,, SpirOnolactone,,,,, Potassium,,,,, Stress Test Details Test: LEXISCAN HR Resting HR: 63 bpm Max Heart Rate (APMHR): 152 bpm Max HR Achieved: 186 bpm Target HR (85% APMHR): 129 bpm % of APMHR: 122 Recovery HR: 62 bpm BP Resting BP: 127.0/57.0 mmHg Max BP: 127.0/57.0 mmHg Recovery BP: 121.0/62.0 mmHg ECG Clinical Exercise duration: 05:45 min Highest Stage Achieved: Exercise capacity: 1.0 METs Stress ECG Conclusion Resting ECG: Normal sinus rhythm, right axis deviation, ST abnormalities inferiorly and rubén-laterally, PAC Symptoms: Mild shortness of air, malaise, nausea. No chest pain. Arrhythmias/Ectopy: None ST-T Changes: Exaggeration of baseline ST abnormalities inferiorly and rubén-laterally Conclusion: Unremarkable Lexiscan stress. Myoview images reported separately. Test Summary RECOVERY 05:00 . . 62 . 121/ 62 . . REST 06:46 . . 63 . 127/ 57 . . Stage 1 01:00 . . 87 . . . . Stage 2 01:00 . . 88 . . . . Stage 3 01:00 . . 78 . 121/ 59 . . Stage 4 01:00 . . 75 . . . . Stage 4 02:00 . . 74 . . . . Stage 4 02:45 . . 72 . 121/ 67 . Stop exercise at 05:45 RECOVERY 01:00 . . 70 . . . . RECOVERY 02:00 . . 66 . . . . RECOVERY 03:00 . . 65 . 115/ 60 . . RECOVERY 04:00 . . 63 . 121/ 62 . . RECOVERY 05:00 . . 62 . 121/ 62 . . RECOVERY 05:16 . . 63 . 121/ 62 . . Electronically signed by : Hesham Barker, 04/09/2019 15:02:33
--- NOTE | 2019-04-03 11:51 | NM_ITS ---
APPROVED REPORT Exam: Nuclear Stress Test Indication: ANGINA, SOA, HTN, D.M., FM. HX., C.P., PALPITATIONS, SYNCOPE, FATIQUE Patient Location: Outpatient Stress Tech: Rebecca Sherman [place] Tech:Joycelyn Alvarez, ARRT RT (R)(N)(M) Ht: 5 ft 3 in Wt: 170 lbs Bra Size: C HR: 62 bpm BP: 127/57 mmHg BSA: 1.80 m2 BMI: 30.1 History: ANGINA, SOA, HTN, D.M., FM. HX., C.P., PALPITATIONS, SYNCOPE, FATIQUE Procedure: Patient received a 0.4 mg of intravenous Lexiscan, resting heart rate 62 bpm, resting blood pressure 127/57 mmHg, with Lexiscan maximum heart rate achived was 88 bpm which is % of the maximum predicted heart rate and blood pressure was 121/59 mmHg. With Lexiscan, patient denied any complaint of chest pain. SOA Cardiac Stress and Resting SPECT Images: Cardiac Stress and Resting SPECT images were obtained using technetium 99m Myoview 30.2 mCi stress and 10.52 mCi at rest. EF 83% There is a small reversible defect in the rubén apical region consistent with a small area of ischemia Conclusion: Normal EF of 83% Ischemic change in the rubén-apical wall Electronically signed by : Peter Huntley MD 04/05/2019 09:36:10
--- NOTE | 2019-04-03 13:25 | HMH.ITSHM ---
Current Home Medications as stated by this patient Racheal Cook or passenger relations representative. []atorvastatin aspirin verapamil levothyroxine furosemide bisuprolol lisinopril pot escitalopram spironolactone pantoprozole drea
== END ==
PROVIDERS: PCP Internal Medicine Adolescent Medicine; Visit Provider Nurse Practitioner Family
DX: I20.8 Other forms of angina pectoris; C71.9 Malignant neoplasm of brain, unspecified; R06.02 Shortness of breath; E78.2 Mixed hyperlipidemia; G47.00 Insomnia, unspecified; I11.9 Hypertensive heart disease without heart failure; R60.9 Edema, unspecified; R94.30 Abnormal result of cardiovascular function study, unspecified
CPT/HCPCS: 78452; 93017; A9502; J2785

== ENCOUNTER → 2019-05-25 10:34 | Outpatient (CLI) | payer MEDICARE, OTHER, SELFPAY ==
[2019-05-25 11:01] LABS: Basophils % 0.2 % (0.1-2.0); Eosinophils # 0.1 K/mm3 (0.0-0.4); Eosinophils % 1.2 % (0.1-12.0); Hematocrit 36.9 % (37.0-47.0); Hemoglobin 12.8 g/dL (12.2-16.2); Lymphocytes # 1.1 K/mm3 (0.7-4.5); Lymphocytes % 17.2 % (10-50); Mean Corpuscular HGB Conc 34.6 g/dL (31.8-35.4); Mean Corpuscular Hemoglobin 31.7 pg (27.0-31.2); Mean Corpuscular Volume 91.6 fl (81-99); Mean Platelet Volume 7.9 fl (7.4-10.4); Monocytes # 0.4 K/mm3 (0.1-1.0); Monocytes % 5.9 % (1.7-9.3); Neutrophils # 4.7 K/mm3 (1.8-7.8); Neutrophils % 75.5 % (37.0-80.0); Platelet Count 225 K/mm3 (142-424); Red Blood Count 4.03 M/mm3 (4.20-5.40); Red Cell Distribution Width 14.6 % (11.5-17.5); White Blood Count 6.3 K/mm3 (4.8-10.8)
[2019-05-25 16:19] LABS: Alanine Aminotransferase 24 U/L (12-78); Albumin Level 3.9 gm/dL (3.4-5.0); Albumin/Globulin Ratio 1.3 (1.1-1.8); Alkaline Phosphatase 94 U/L (46-116); Anion Gap 19.2 mEq/L (5-15); Aspartate Amino Transferase 15 U/L (15-37); Bilirubin,Total 1.7 mg/dL (0.2-1.0); Blood Urea Nitrogen 16 mg/dL (7-18); Calcium 8.9 mg/dL (8.5-10.1); Carbon Dioxide 24 mmol/L (21.0-32.0); Chloride 102 mmol/L (98-107); Creatinine,Serum 1.25 mg/dL (0.55-1.02); Estimated Glomerular Filt Rate 42 ml/min (>60); GFR (African American) 51 ML/MIN (>60); Glucose 137 mg/dL (74-106); Potassium 3.2 mmoL/L (3.5-5.1); Sodium 142 mmol/L (136-145); Total Protein,Serum 6.9 gm/dL (6.4-8.2)
[2019-05-25 16:20] LABS: Thyroid Stimulating Hormone 2.23 uIU/ml (0.358-3.740)
== END ==
PROVIDERS: Visit Provider Nurse Practitioner Family
DX: I25.10 Atherosclerotic heart disease of native coronary artery without angina pectoris (principal); R58 Hemorrhage, not elsewhere classified; E11.9 Type 2 diabetes mellitus without complications; E03.9 Hypothyroidism, unspecified; Z79.84 Long term (current) use of oral hypoglycemic drugs
CPT/HCPCS: 36415; 80053; 84443; 85025

== ENCOUNTER → 2019-07-18 09:55 | Outpatient (CLI) | payer MEDICARE, OTHER, SELFPAY ==
[2019-07-18 11:46] LABS: Hemoglobin A1C 6.1 % (0.0-7.0)
[2019-07-18 12:23] LABS: Alanine Aminotransferase 26 U/L (12-78); Albumin Level 4.1 gm/dL (3.4-5.0); Albumin/Globulin Ratio 1.5 (1.1-1.8); Alkaline Phosphatase 75 U/L (46-116); Aspartate Amino Transferase 15 U/L (15-37); Bilirubin,Total 2.1 mg/dL (0.2-1.0); Blood Urea Nitrogen 17 mg/dL (7-18); Calcium 8.9 mg/dL (8.5-10.1); Carbon Dioxide 26 mmol/L (21.0-32.0); Chloride 100 mmol/L (98-107); Chol/HDL Ratio 2.6 (1-3.5); Cholesterol 102 mg/dL (140-200); Creatinine,Serum 1.22 mg/dL (0.55-1.02); Estimated Glomerular Filt Rate 44 ml/min (>60); GFR (African American) 53 ML/MIN (>60); Globulin 2.8 gm/dl (1.3-3.2); Glucose 121 mg/dL (74-106); HDL Cholesterol 39 mg/dL (29-89); LDL Cholesterol 32 mg/dL (0-130); Sodium 138 mmol/L (136-145); Thyroid Stimulating Hormone 0.48 uIU/ml (0.358-3.740); Total Protein,Serum 6.9 gm/dL (6.4-8.2); Triglycerides 154 mg/dL (30-200); VLDL Cholesterol 31 mg/dL (0-40)
[2019-07-18 13:23] LABS: Basophils % 0.3 % (0.1-2.0); Eosinophils # 0.1 K/mm3 (0.0-0.4); Eosinophils % 1.2 % (0.1-12.0); Hematocrit 36.7 % (37.0-47.0); Hemoglobin 12.4 g/dL (12.2-16.2); Lymphocytes # 1.4 K/mm3 (0.7-4.5); Lymphocytes % 23.2 % (10-50); Mean Corpuscular HGB Conc 33.8 g/dL (31.8-35.4); Mean Corpuscular Hemoglobin 31.1 pg (27.0-31.2); Mean Corpuscular Volume 91.9 fl (81-99); Monocytes # 0.4 K/mm3 (0.1-1.0); Monocytes % 6.7 % (1.7-9.3); Neutrophils # 4.2 K/mm3 (1.8-7.8); Neutrophils % 68.4 % (37.0-80.0); Platelet Count 223 K/mm3 (142-424); Red Cell Distribution Width 14.8 % (11.5-17.5); White Blood Count 6.2 K/mm3 (4.8-10.8)
== END ==
PROVIDERS: Visit Provider Internal Medicine Adolescent Medicine
DX: E78.5 Hyperlipidemia, unspecified (principal); E03.9 Hypothyroidism, unspecified; E11.9 Type 2 diabetes mellitus without complications; I10 Essential (primary) hypertension; R53.83 Other fatigue; Z79.84 Long term (current) use of oral hypoglycemic drugs
CPT/HCPCS: 36415; 80053; 80061; 83036; 84443; 85025

== ENCOUNTER → 2019-11-08 10:43 | Outpatient (CLI) | payer MEDICARE, OTHER, SELFPAY ==
--- NOTE | 2019-11-08 11:14 | CT_ITS ---
PROCEDURE: CT ABDOMEN PELVIS WO CON CLINICAL INDICATION: Left lower quadrant pain since last night, previous history of diverticulitis COMPARISON: ABDPELW CT ABD PELVIS W/ CONTRAST from 09/08/2015 TECHNIQUE: Axial images obtained with sagittal and coronal reformats. All CT scans at the facility use one or more dose reduction, viz: automated exposure control, ma/kV adjustment per patient size (including targeted exams where dose is matched to indication, i.e. head), or iterative reconstruction technique. FINDINGS: Lower thorax: No acute finding, there are calcified granulomata in the lingula and left lower lobe speckled metallic artifacts are seen on the patient's skin parent lease secondary to metallic objects within the patient's T shirt. ABDOMEN: Liver: No masses or biliary dilatation. Gallbladder: Post cholecystectomy Pancreas: No masses or peripancreatic fluid collections. Spleen: unremarkable Adrenals: unremarkable Kidneys/ureters: The kidneys are normal in size and there is no obstructive uropathy. There is a small faint calculus midpole left kidney. ABDOMEN & PELVIS: Stomach bowel: The stomach and small bowel appear normal. There is scattered stool and gas seen throughout the colon. There is moderate diverticulosis of the ascending colon and proximal descending colon. There is rather severe diverticulosis of the sigmoid colon. There is a subtle area of mild Junie colonic fat stranding at the descending sigmoid colon junction suggesting possibly early acute diverticulitis. Peritoneum: No abnormal fluid collections. No obvious inflammatory changes. No free air. Lymph nodes: No enlarged lymph nodes apparent. Vasculature: No evidence of abdominal aortic aneurysm. No retroperitoneal hemorrhage evident. Bones: No acute fracture there are mild degenerate changes lower thoracic spine. PELVIS: Reproductive: Post hysterectomy Bladder: The urinary bladder is moderately distended with urine appears normal. There is no free fluid in the pelvis. Appendix: Not definitely visualized but there are no pericecal inflammatory changes. IMPRESSION: Moderately severe diverticulosis of the sigmoid colon with possible small area of early acute diverticulitis at the descending sigmoid colon junction Dictated by: Dr. Foster Walker MD 11/08/2019 11:[address] Foster Walker MD in [place] 11/08/2019 11:57
[2019-11-08 11:24] LABS: Basophils % 0.7 % (0.1-2.0); Eosinophils % 0.9 % (0.1-12.0); Hematocrit 39.1 % (37.0-47.0); Hemoglobin 13.3 g/dL (12.2-16.2); Lymphocytes # 1.2 K/mm3 (0.7-4.5); Lymphocytes % 24.4 % (10-50); Mean Corpuscular HGB Conc 34.1 g/dL (31.8-35.4); Mean Corpuscular Volume 90.9 fl (81-99); Mean Platelet Volume 7.6 fl (7.4-10.4); Monocytes # 0.3 K/mm3 (0.1-1.0); Monocytes % 6.6 % (1.7-9.3); Neutrophils # 3.2 K/mm3 (1.8-7.8); Neutrophils % 67.3 % (37.0-80.0); Platelet Count 195 K/mm3 (142-424); Red Cell Distribution Width 14.6 % (11.5-17.5); White Blood Count 4.8 K/mm3 (4.8-10.8)
[2019-11-08 13:41] LABS: Chloride 99 mmol/L (98-107); Potassium 3.9 mmoL/L (3.5-5.1); Sodium 140 mmol/L (136-145)
[2019-11-08 13:44] LABS: Alanine Aminotransferase 16 U/L (12-78); Albumin Level 4.4 g/dl (3.5-5.0); Albumin/Globulin Ratio 1.6 (1.1-1.8); Alkaline Phosphatase 92 U/L (38-126); Anion Gap 15.9 mEq/L (5-15); Aspartate Amino Transferase 23 U/L (14-36); Bilirubin,Total 1.9 mg/dl (0.2-1.3); Blood Urea Nitrogen 14 mg/dl (7-17); Carbon Dioxide 29 mmol/L (22.0-30.0); Estimated Glomerular Filt Rate 55 ml/min (>60); GFR (African American) 67 ML/MIN (>60); Globulin 2.7 g/dL (1.3-3.2); Total Protein,Serum 7.1 g/dl (6.3-8.2)
[2019-11-08 13:45] LABS: Calcium 9.6 mg/dl (8.4-10.2); Glucose 133 mg/dl (74-100)
== END ==
LOC: LAB 10:44 → RAD 11:10
PROVIDERS: PCP Internal Medicine Adolescent Medicine; Visit Provider Internal Medicine Adolescent Medicine
DX: R10.9 Unspecified abdominal pain (principal); R10.32 Left lower quadrant pain
CPT/HCPCS: 36415; 74176; 80053; 85025

== ENCOUNTER → 2019-11-28 11:27 | Outpatient (CLI) | payer MEDICARE, OTHER, SELFPAY ==
[2019-11-28 12:48] LABS: Alanine Aminotransferase 16 U/L (12-78); Albumin Level 4.9 g/dl (3.5-5.0); Albumin/Globulin Ratio 1.8 (1.1-1.8); Alkaline Phosphatase 89 U/L (38-126); Anion Gap 14.9 mEq/L (5-15); Aspartate Amino Transferase 27 U/L (14-36); Bilirubin,Total 1.8 mg/dl (0.2-1.3); Blood Urea Nitrogen 16 mg/dl (7-17); Calcium 10.2 mg/dl (8.4-10.2); Carbon Dioxide 32 mmol/L (22.0-30.0); Chloride 96 mmol/L (98-107); Creatine Kinase 38 U/L (30-135); Estimated Glomerular Filt Rate 49 ml/min (>60); GFR (African American) 60 ML/MIN (>60); Globulin 2.8 g/dL (1.3-3.2); Glucose 167 mg/dl (74-100); Potassium 3.9 mmoL/L (3.5-5.1); Sodium 139 mmol/L (136-145); Total Protein,Serum 7.7 g/dl (6.3-8.2)
[2019-11-28 17:07] LABS: Hemoglobin A1C 6.1 % (4.0-6.0)
== END ==
PROVIDERS: Internal Medicine Adolescent Medicine; Visit Provider Internal Medicine
DX: E11.69 Type 2 diabetes mellitus with other specified complication (principal); E78.2 Mixed hyperlipidemia; Z79.84 Long term (current) use of oral hypoglycemic drugs; Z79.899 Other long term (current) drug therapy
CPT/HCPCS: 36415; 80053; 82550; 83036; 84443

== ENCOUNTER 2020-01-10 17:25 | Emergency (ER) | payer MEDICARE, OTHER, SELFPAY ==
[2020-01-10 17:43] VITALS: BP 116/82; PULSE 61; RESP 20; TEMP 36.8; O2SAT 97; BMI 32.9
--- NOTE | 2020-01-10 17:47 | XR_ITS ---
PROCEDURE: XR FOOT LT MIN 3V CLINICAL INDICATION: INJURY Pain and bruising COMPARISON: No exams were available for comparison FINDINGS: No fracture or dislocation. No lytic or blastic change. There is normal mineralization. The joint spaces are well-preserved. No significant degenerative/arthritic changes. No erosive changes evident. Other findings:There is mild hallux valgus IMPRESSION: No acute findings. Dictated by: Peter Huntley MD 01/10/2020 22:46 Electronically signed by Peter Huntley MD in [place] 01/10/2020 22:46
--- NOTE | 2020-01-10 17:47 | XR_ITS ---
PROCEDURE: XR HAND LT MIN 3V CLINICAL INDICATION: INJURY Pain COMPARISON: No exams were available for comparison FINDINGS: No fracture or dislocation. No lytic or blastic change. There is normal mineralization. The joint spaces are well-preserved. No significant degenerative/arthritic changes. No erosive changes evident. Other findings:None. IMPRESSION: No acute findings. Dictated by: Peetr Huntley MD 01/10/2020 22:44 Electronically signed by Peter Huntley MD in [place] 01/10/2020 22:44
--- NOTE | 2020-01-10 18:28 | HMH.EDUTC ---
[facility] [place] Disposition Clinical Impression: Paronychia Disposition: Home, Self-Care Condition on Discharge: Good Instructions: DI for Paronychia Additional Instructions: Follow up with Dr Pacheco next week. Return to [facility] if worse over the weekend. Take antibiotics as prescribed and do Epsom salt soaks. Return if fever, severe pain, infection/redness spreading towards hand Prescriptions: Sulfamethoxazole/Trimethoprim [Bactrim DS tablet] 1 each PO BID 10 Days #20 tab Transmission Status: Sent to [facility] Referrals: Gerardo Pacheco MD [Primary Care Provider] - Time of Disposition: 18:38 Medical Decision Making - Bon Inquiry Pt receiving controlled substance: No Vital Signs: 01/10/20 17:43 Temperature 98.2 F Temperature Source Oral Pulse Rate [Right Brachial] 61 Respiratory Rate 20 Blood Pressure [Right Arm] 116/82 Blood Pressure Mean [Right Arm] 93 Blood Pressure Source [Right Arm] Automatic Cuff Blood Pressure Position [Right Arm] Sitting 02 Sat by Pulse Oximetry 97 Oxygen Delivery Method Room Air Orders (Tests/Meds): ORDERS Category Date Time Status Foot XR left minimum 3 views [XR foot LT min 3V] Stat Exams 01/10/20 17:47 Taken XR hand LT min 3V Stat Exams 01/10/20 17:47 Taken - Radiology Data #1 Image(s): Hand Image Reviewed: Yes I reviewed the patient's radiology image Preliminary Findings: Normal/NAD, No Fracture Seen #2 Image(s): Foot/Toes Image Reviewed: Yes I reviewed the patient's radiology image Preliminary Findings: Normal/NAD, No Fracture Seen [facility] HPI - General Stated complaint: ao 01/08 fell hurt left middle finger Time Seen by Provider: 01/10/20 18:28 Mode of Arrival: Ambulatory Source of Information: Patient Limitations: No Limitations Description of Symptoms (Recalled from Triage Doc. by RN): PATIENT C/O INJURY TO LEFT MIDDLE FINGER AND POSSIBLY LEFT FOOT AFTER FALLING OVER HER COUCH HEENT Symptoms (Recalled from RN notes): No Resp Symptoms (Recalled from RN notes): No Skin Symptoms (Recalled from RN notes): No MS Symptoms (Recalled from RN notes): Yes Functional Status (Recalled from RN notes): WNL - History of Present Illness Provider Complaint: Pain in left 3rd finger after falling on the couch. Happened several days ago - cannot recall exactly when. Also has pain in left foot. Location: left, upper extremity Relieving factors: none Exacerbating factors: none Associated symptoms: denies other symptoms Treatments prior to arrival: none - Related Data Home Medications Medication Instructions Recorded Confirmed Pantoprazole Sodium [Protonix 40mg 40 mg PO BID 09/21/17 05/29/19 tablet] Aspirin [Aspirin 81mg EC Tab] 81 mg PO DAILY 04/22/19 05/29/19 Potassium Chloride 20 meq PO BID 04/22/19 05/29/19 dexamethasone 2 mg tablet 2 mg PO BID tab 12/04/19 12/04/19 atorvastatin 40 mg tablet 40 mg PO QHS 01/01/20 01/01/20 donepezil 10 mg tablet 10 mg PO QHS 01/01/20 01/01/20 escitalopram oxalate 20 mg tablet 20 mg PO DAILY tab 01/01/20 levothyroxine 100 mcg tablet 50 mcg PO DAILY tab 01/01/20 ondansetron HCl 4 mg tablet 4 mg PO Q8H 01/01/20 01/01/20 ondansetron HCl 8 mg tablet 8 mg PO QHS PRN tab 01/01/20 01/01/20 verapamil 100 mg capsule 24hr 100 mg PO QHS 01/01/[address],ext.release Previous Rx's Medication Instructions Recorded Nitroglycerin 0.4 mg SL Q5MINP PRN #25 tab.subl 09/22/17 furosemide 40 mg tablet 80 mg PO DAILY #180 tab 07/08/19 clopidogrel 75 mg tablet 75 mg PO DAILY #30 tab 12/11/19 isosorbide mononitrate 30 mg 30 mg PO DAILY #90 tab 12/30/19 tablet,extended release 24 hr spironolactone 25 mg tablet 25 mg PO DAILY #30 tab 01/06/20 Sulfamethoxazole/Trimethoprim 1 each PO BID 10 Days #20 tab 01/10/20 [Bactrim DS tablet] Allergies Allergy/AdvReac Type Severity Reaction Status Date / Time azithromycin Allergy Intermediate NA-NAUSEA/V Verified 01/01/20 11:29 OMITING latex Allergy Interme
[2020-01-10 18:50] VITALS: BP 116/82; PULSE 61; RESP 20; TEMP 36.8; O2SAT 97
== END 2020-01-10 18:55 | disposition home or self-care (01) ==
PROVIDERS: Emergency Provider Physician Assistant; PCP Internal Medicine Adolescent Medicine
DX: L03.012 Cellulitis of left finger (principal); M79.642 Pain in left hand; W01.0XXA Fall on same level from slipping, tripping and stumbling without subsequent striking against object, initial encounter; Y92.019 Unspecified place in single-family (private) house as the place of occurrence of the external cause; I10 Essential (primary) hypertension; I25.10 Atherosclerotic heart disease of native coronary artery without angina pectoris; E11.9 Type 2 diabetes mellitus without complications; D64.9 Anemia, unspecified; Z88.8 Allergy status to other drugs, medicaments and biological substances; Z91.040 Latex allergy status; Z91.048 Other nonmedicinal substance allergy status; Z79.899 Other long term (current) drug therapy
CPT/HCPCS: G0463; 73130; 73630; 99201